=== PATIENT | female | born 1930 | race Caucasian/White ===

== ENCOUNTER → 2016-03-20 | Outpatient (CLI) | payer MEDICARE, OTHER ==
--- OUTSIDE RECORDS SUMMARY | 2016-03-20 09:17 | XMS REPORT | Continuity of Care Document ---
Author Author [facility] Organization [facility] Address Unknown Phone Unavailable Support Name Relationship Address Phone QUYEN AYERS MD Caregiver [facility] [address] [place] [address] MARIYA BOLDEN MD Caregiver [address] [facility] [address] RADHA GARAY Next Of Kin [address] [place] [address] Insurance Providers Payer Name Policy Number Subscriber Name Relationship Wps Medicare [id number] Leelee Cole 19 Self / Same As Patient Enter Insurance Name [id number] Leelee Cole 18 Self / Same As Patient Advance Directives Directive Response Recorded Date/Time Advance Directives No 10/01/13 11:18am Health Care Power of Tension Worker Y LAKEISHA REARDON DTR 10/01/13 11:18am Organ Donor No 10/01/13 11:18am Resuscitation Status Full Code 10/01/13 11:18am Problems No known problems or medical conditions. Medications No known medications. Social History No social history. Hospital Discharge Instructions No hospital discharge instructions. Plan of Care No plan of care. Functional Status No functional status results. Allergies, Adverse Reactions, Alerts Allergen Type Severity Reaction Status Last Updated No Known Drug Allergies Active 10/01/13 Immunizations No immunization records. Vital Signs Acute Vital Signs Vital Response Date/Time Temperature (Fahrenheit) 97.1 degrees F (97.6 - 99.5) Temperature (Calculated Celsius) 36.32588 degrees C (36.4 - 37.5) Temperature Source Tympanic Pulse Rate (adult) 76 bpm (60 - 90) Respiratory Rate 18 bpm (12 - 24) O2 Sat by Pulse Oximetry 97 % (88 - 100) Blood Pressure 145/73 mm Hg Pain Pain Intensity 0 Pain Pain Intensity 0 Height (Feet) 5 feet Height (Inches) 4.50 inches Height (Calculated Centimeters) 163.942509 cm Weight (Pounds) 184 pounds Weight (Calculated Grams) 79069.997 gm Weight (Calculated Kilograms) 83.153881 kilograms Calculated BMI 31.09 Results No known relevant diagnostic tests, laboratory data and/or discharge summary. Procedures No known history of procedures. Encounters Encounter Location Date/Time Registered Clinic [facility] 10/01/13 10:26am Registered Clinic [facility] 09/29/13 1:31pm
--- NOTE | 2016-03-20 12:21 | Diagnostic Imaging Report ---
PROCEDURE: MRI lumbar spine. TECHNIQUE: Multiplanar, multisequence MRI of the lumbar spine was performed without contrast. INDICATION: Back pain. FINDINGS: There is a grade 1 retrolisthesis of L2 over L3 and grade 1 spondylolisthesis of L4 over L5. The vertebral body heights are preserved. There is disc desiccation at all levels. There is mild disc height loss at L2/L3 and at L4/L5 levels. The bone marrow signal demonstrates mild marrow edema along the endplate margins around L2/L3 level, especially at the upper endplate of L3 and to lesser extent similar degenerative-related marrow edema at upper endplate of L2 and L4 levels. There is no suspicious mass in the marrow identified. The cauda equina and conus medullaris appear grossly unremarkable. T11/T12: There is mild disc bulge without significant spinal canal stenosis. There is mild foraminal stenosis on the right side. The left foramen is patent. T12/L1: There is a minimal disc bulge. No spinal canal or foraminal stenosis, however. L1/L2: There is a mild disc bulge and mild facet hypertrophy. No central canal or lateral recess stenosis. No foraminal narrowing. L2/L3: There is a mild diffuse disc bulge and moderate facet hypertrophy bilaterally. No central canal stenosis. There is bilateral mild narrowing of the lateral recess. The foramina demonstrate mild narrowing bilaterally. L3/L4: There is a minimal disc bulge. There is moderate facet hypertrophy and minimal facet effusion on the right side. No central canal or lateral recess stenosis. The foramina are patent. L4/L5: There is a grade 1 spondylolisthesis at this level. There is a diffuse mild disc bulge. The bilateral moderate to severe facet arthropathy is seen. There is mild central canal stenosis reducing the AP dimension of the canal to 9 mm and there is bilateral lateral recess stenosis, mild on the left side and mild to moderate on the right side. There is foraminal stenosis of moderate degree on the right and mild to moderate degree on the left. L5/S1: There is a minimal disc bulge. There is moderate facet arthropathy bilaterally. No central canal or lateral recess stenosis is seen. There is no significant foraminal stenosis. IMPRESSION: There is grade 1 retrolisthesis of L2 over L3 and grade 1 spondylolisthesis of L4 over L5 appears to be secondary to degenerative changes. There are multilevel disc herniations and facet arthropathy, more prominent in the lower lumbar spine. Dictated by: Dictated on workstation # [id number]
== END ==
LOC: RAD 09:14
PROVIDERS: ATTEND Orthopaedic Surgery
DX: M47.896 Other spondylosis, lumbar region (principal)
CPT/HCPCS: 72148

== ENCOUNTER → 2016-08-02 | Outpatient (CLI) | payer MEDICARE, OTHER ==
--- NOTE | 2016-08-02 16:05 | Diagnostic Imaging Report ---
PROCEDURE: CT abdomen and pelvis without contrast. TECHNIQUE: Multiple contiguous axial images were obtained through the abdomen and pelvis without the use of intravenous contrast. INDICATION: Constipation with abdominal pain. COMPARISON: None available. FINDINGS: Evaluation of the abdominal viscera is mildly limited without contrast. Lower chest: There are a few foci of atelectasis within the lung bases. No airspace consolidation. No pericardial or pleural effusion. Peritoneum: No free intraperitoneal air or fluid. Liver and biliary system: Unenhanced liver is normal. The gallbladder is normal. No biliary duct dilation. Spleen and Pancreas: Spleen is normal. Unenhanced pancreas is grossly normal. Adrenals: Normal. tract: No renal or ureteral calculi. No obstructive uropathy. Urinary bladder is partially obscured by streak artifact from left hip arthroplasty. The uterus is surgically absent. GI tract: Stomach is decompressed. No bowel obstruction. Status post right hemicolectomy. There is an enterocolonic anastomosis in the right upper quadrant without evidence of stricture. Descending and sigmoid colon diverticulosis without evidence of diverticulitis. Vasculature and Lymph nodes: Normal caliber aorta with moderate atherosclerotic plaquing. No abdominal or pelvic lymphadenopathy. Musculoskeletal: No concerning focal osseous lesion. Left total hip arthroplasty with components in good position. Degenerative levocurvature of the lumbar spine. IMPRESSION: 1. No acute intra-abdominal process. 2. Status post right hemicolectomy. Descending and sigmoid colon diverticulosis without diverticulitis. Dictated by: Dictated on workstation # [id number]
== END ==
LOC: RAD 15:31
PROVIDERS: ATTEND Nurse Practitioner Family
DX: K57.30 Diverticulosis of large intestine without perforation or abscess without bleeding (principal); Z90.49 Acquired absence of other specified parts of digestive tract; R10.30 Lower abdominal pain, unspecified; K59.00 Constipation, unspecified
CPT/HCPCS: 74176

== ENCOUNTER 2017-07-17 16:48 | Emergency (ER) | payer MEDICARE, OTHER ==
[~2017-07-17] VITALS: Ht 165.1 cm; Wt 89.8 kg
--- NOTE | 2017-07-17 17:33 | Diagnostic Imaging Report ---
INDICATION: Fall with left-sided abdominal pain, history of colon cancer. KUB obtained at 5:49 p.m. FINDINGS: The abdominal bowel gas pattern is unremarkable. There is no overt obstruction or ileus. There is no overt bony abnormality. There is a left hip prosthesis in good alignment. There are surgical sutures over the right side of the abdomen. IMPRESSION: Unremarkable abdominal film. Dictated by: Dictated on workstation # [id number]
--- NOTE | 2017-07-17 17:47 | ED General ---
General Chief Complaint: General Problems/Pain Stated Complaint: PAIN Nursing Triage Note: PATIENT IS HERE FOR SEVERAL GENERAL COMPLAINTS: BACK PAIN, LEG PAIN (SOMETIMES RIGHT, SOME TIMES LEFT), ABDOMINAL PAIN THAT SHE HAS HAD FOR 5 YEARS ON THE LEFT SIDE, FREQUENT FALLS, DIFFICULTIES WALKING, ITCHING. SHE STATES SHE HAD BLOOD WORK AND UA RECENTLY THAT WAS ALL NORMAL. Nursing Sepsis Screen: No Definite Risk Source of Information: Patient Exam Limitations: No Limitations History of Present Illness Date Seen by Provider: Jul 17, 2017 Time Seen by Provider: 17:14 Initial Comments This 86-year-old woman is brought to the emergency room by her son and daughter with complaints of back pain, left-sided abdominal pain, and generalized discomfort. She reports progressive problems with weakness and walking. She reports frequent falls. In particular, she reports having a fall about 2 months ago in which she injured her back. She has not had imaging related to that fall. She denies any head injury. She has history of spinal stenosis and has been seen by Dr. Kwon in the past. Family reports she has not a surgical candidate. Patient states her primary care provider is Brenda Dixon but she frequents urgent care clinic's. Family reports patient has had these problems for several years. They report none of her complaints today are acute. She was apparently evaluated at the [facility] urgent care a couple days ago. A urine specimen was collected and was reportedly unremarkable. They report she also recently had blood work performed by Dr. Dixon which was unremarkable per their report. Patient has problems with alternating between constipation and diarrhea. She uses MiraLAX and Dulcolax when constipated of the takes Imodium when she has runny stools. She was recently started on Linzess. Patient is a little bit of a confused historian. Family members are obviously frustrated with her. Patient lives alone and is checked on daily by her son. It seems that patient's primary complaint is that she has generalized pain, specifically back pain, that is limiting her mobility. She takes Tylenol and ibuprofen at home. Her children reported that she has been to multiple doctors in the recent past including Dr. Vega, Dr. Dixon, and Dr. William. Most recently she saw Dr. Dixon but does not intend to go back. They state her fall earlier today was nontraumatic with no blunt injury. She slid down onto a chest but did not truly fall. Allergies and Home Medications Allergies Coded Allergies: No Known Drug Allergies (Unverified , 10/01/13) Home Medications Gabapentin 100 Mg Capsule, 100 MG PO HS Prescribed by: MARKUS ARGUETA on 07/17/171832 Prednisone 10 Mg Tab, 10 MG PO DAILY Prescribed by: MARKUS ARGUETA on 07/17/17 1849 Patient Home Medication List Home Medication List Reviewed: Yes Review of Systems Constitutional: no symptoms reported EENTM: no symptoms reported Respiratory: no symptoms reported Cardiovascular: no symptoms reported Gastrointestinal: see HPI Genitourinary: no symptoms reported : No Musculoskeletal: see HPI Skin: no symptoms reported Psychiatric/Neurological: See HPI Hematologic/Lymphatic: No Symptoms Reported Immunological/Allergic: no symptoms reported Past Bvspbsq-Izpbxc-Wyczxd Hx Past Med/Social Hx: Reviewed and Corrections made Patient Social History Alcohol Use: Denies Use Recreational Drug Use: No Smoking Status: Never a Smoker 2nd Hand Smoke Exposure: No Recent Foreign Travel: No Contact w/Someone Who Travel: No Recent Infectious Disease Expo: No Recent Hopitalizations: No Physical Abuse: No Sexual Abuse: No Seasonal Allergies Seasonal Allergies: No Past Medical History Surgeries: Yes (COLON CA SURGERY) Respiratory: No Cardiac: No Neurological: No : No Reproductive Disorders: No Genitourinary: No Gastrointestinal: Yes Irritable Bowel Musculoskeletal: Yes Chronic Back Pain Endocrine: No HEENT: No Cancer: Yes Colon Psychosocial: No Nursing Suicide Risk Score: 0 Integumentary: No Physical Exam Vital Signs Vital Signs - First Documented 07/17/17 17:00 Temp 98.3 Pulse 85 Resp 18 B/P (MAP) 138/73 (94) Pulse Ox 96 Capillary Refill : Less Than 3 Seconds General Appearance: WD/WN, Anxious HEENT: PERRL/EOMI, Normal ENT Inspection, Pharynx Normal Neck: Normal Inspection, Supple Respiratory: Lungs Clear, Normal Breath Sounds, No Accessory Muscle Use Cardiovascular: Regular Rate, Rhythm, No Edema, No Murmur Gastrointestinal: Normal Bowel Sounds, Soft, Tenderness (left lower quadrant, stated as chronic) Extremity: Normal Inspection, No Pedal Edema, Other (mild tenderness about the knees. No significant pain with rotation of the hips or palpation of the hips) Neurologic/Psychiatric: Alert, Other (generalized weakness with no focal deficits. Disoriented to month. Anxious.) Skin: Normal Color, Warm/Dry Progress/Results/Core Measures Suspected Sepsis Recent Fever Within 48 Hours: No Infection Criteria Present: None New/Unexplained Altered Menta: No Sepsis Screen: No Definite Risk SIRS Temperature:98.3 Pulse: 85 Respiratory Rate: 18 Blood Pressure 138 /73 Mean: 94 Results/Orders My Orders Orders - MARKUS ESTEVEZ MD Thoracolumbar Spine Min 2 View (07/17/17 17:14) Abdomen/Kub 1view (07/17/17 17:14) Thoracic Spine, 2 Views Only (07/17/17 18:03) Lumbar Spine - 2-3 Views (07/17/17 18:03) Vital Signs/I&O Capillary Refill : Less Than 3 Seconds Blood Pressure Mean: 94 Progress Note : Progress Note Patient x-rays showed no evidence of constipation or spinal compression fracture. I discussed the patient's situation and complaints at length with the patient and family. I strongly advised her to seek care with a primary care provider and to stay with a single provider. In the meantime, we will prescribe a trial of gabapentin at bedtime and a few days of prednisone therapy. Diagnostic Imaging Diagonstic Imaging: Xray Plain Films/CT/US/NM/MRI: abdomen, pelvis Comments KUB viewed by me and report reviewed. See report below: NAME: LOPEZ COLE [facility] REC#: [id number] PT STATUS: REG ER : 1930 PHYSICIAN: MARKUS ESTEVEZ MD ADMIT DATE: 07/17/17/ER Draft Date of Exam:07/17/17 ABDOMEN/KUB 1VIEW INDICATION: Fall with left-sided abdominal pain, history of colon cancer. KUB obtained at 5:49 p.m. FINDINGS: The abdominal bowel gas pattern is unremarkable. There is no overt obstruction or ileus. There is no overt bony abnormality. There is a left hip prosthesis in good alignment. There are surgical sutures over the right side of the abdomen. IMPRESSION: Unremarkable abdominal film. Dictated on workstation # [id number] Dict: 07/17/17 173 Trans: 07/17/17 173 RICHY [id number] Interpreted by: ELENA STEVE MD Diagonstic Imaging: Xray Plain Films/CT/US/NM/MRI: other (Thoracic spine) Comments X-rays of thoracic spine viewed by me and report reviewed. See report below: NAME: LOPEZ COLE [facility] REC#: [id number] PT STATUS: REG ER : 1930 PHYSICIAN: MARKUS ESTEVEZ MD ADMIT DATE: 07/17/17/ER Signed Date of Exam: 07/17/17 THORACIC SPINE, 2 VIEWS ONLY INDICATION: Fall with back pain. EXAMINATION: AP and lateral views of the thoracic spine were obtained. FINDINGS: There is diffuse mild osteophyte formation at essentially all levels throughout the thoracic spine with mild disc space narrowing. There is no acute fracture or compression deformity. There is mild dextroscoliotic change. IMPRESSION: Degenerative findings and mild dextroscoliotic change of the thoracic spine. No definite fracture or compression deformity. Dictated by: Dictated on workstation # [id number] Dict: 07/17/171831 Trans: 07/17/171841 Interpreted by: ELENA STEVE MD Electronically signed by: ELENA STEVE MD 07/17/171841 Diagonstic Imaging: Xray Plain Films/CT/US/NM/MRI: other (Lumbar spine) Comments Lumbar spine x-ray viewed by me and report reviewed. See report below: NAME: LOPEZ COLE [facility] REC#: [id number] PT STATUS: REG ER : 1930 PHYSICIAN: MARKUS ESTEVEZ MD ADMIT DATE: 07/17/17/ER Signed Date of Exam: 07/17/17 LUMBAR SPINE - 2-3 VIEWS INDICATION: Fall with back pain. EXAMINATION: AP and lateral views of he lumbar spine were obtained. COMPARISON: 09/29/2013. FINDINGS: There is about 3 mm of anterolisthesis of L4 on L5 and about 2-3 mm of retrolisthesis of L2 on L3. This alignment is unchanged compared to the previous study of 09/29/2013. There is no compression deformity or acute fracture. There is facet degenerative change at L3-4, L4-5 and L5-S1. IMPRESSION: Degenerative findings in the lumbar spine, as described above, with no acute compression deformity or acute fracture. Anterolisthesis of L4 on L5 and retrolisthesis of L2 on L3 appears similar to 09/29/2013. Dictated by: Dictated on workstation # [id number] Dict: 07/17/17 1831 Trans: 07/17/171841 Interpreted by: ELENA STEVE MD Electronically signed by: ELENA STEVE MD 07/17/171841 Departure Impression Primary Impression: Chronic pain Qualified Codes: G89.29 - Other chronic pain Additional Impressions: Arthritis Generalized weakness Disposition: HOME, SELF-CARE Condition: Stable Departure-Patient Inst. Decision time for Depature: 18:31 Referrals: BRENDA DIXON MD (PCP/Family) Primary Care Physician Patient Instructions: CHRONIC PAIN Add. Discharge Instructions: You may take Tylenol (acetaminophen) up to 1000 mg every 6 hours as needed for pain. Add ibuprofen up to 400 mg every 6 hours as needed for pain not controlled by Tylenol. Take with food or milk to avoid stomach irritation. Add gabapentin (Neurontin) as prescribed at bedtime to help you sleep and control pain at night. If you're not making progress on your pain management with [id number]-neiujdd medications and gabapentin, consider taking prednisone as prescribed. Take prednisone early in the day with food. Reestablish with a primary care provider as soon as possible to help you manage your chronic issues. Return to care more promptly if you have worsening symptoms. Ambulate with a cane or walker for your safety. When you reestablish with a primary care provider, discussed the potential for physical therapy for strength training and coordination. All discharge instructions reviewed with patient and/or family. Voiced understanding. Scripts Prednisone (Prednisone) 10 Mg Tab 10 MG PO DAILY, #5 TAB Prov: MARKUS ESTEVEZ MD 07/17/17 Gabapentin (Gabapentin) 100 Mg Capsule 100 MG PO HS, #10 CAP Prov: MARKUS ESTEVEZ MD 07/17/17 Copy Copies To 1: BRENDA DIXON MD, JOSHUA T MD Jul 17, 2017 17:47
[2017-07-17] MEDS ORDERED: GABA-486 PO (18:33)
--- NOTE | 2017-07-17 18:35 | Diagnostic Imaging Report ---
INDICATION: Fall with back pain. EXAMINATION: AP and lateral views of he lumbar spine were obtained. COMPARISON: 09/29/2013. FINDINGS: There is about 3 mm of anterolisthesis of L4 on L5 and about 2-3 mm of retrolisthesis of L2 on L3. This alignment is unchanged compared to the previous study of 09/29/2013. There is no compression deformity or acute fracture. There is facet degenerative change at L3-4, L4-5 and L5-S1. IMPRESSION: Degenerative findings in the lumbar spine, as described above, with no acute compression deformity or acute fracture. Anterolisthesis of L4 on L5 and retrolisthesis of L2 on L3 appears similar to 09/29/2013. Dictated by: Dictated on workstation # [id number]
--- NOTE | 2017-07-17 18:36 | Diagnostic Imaging Report ---
INDICATION: Fall with back pain. EXAMINATION: AP and lateral views of the thoracic spine were obtained. FINDINGS: There is diffuse mild osteophyte formation at essentially all levels throughout the thoracic spine with mild disc space narrowing. There is no acute fracture or compression deformity. There is mild dextroscoliotic change. IMPRESSION: Degenerative findings and mild dextroscoliotic change of the thoracic spine. No definite fracture or compression deformity. Dictated by: Dictated on workstation # [id number]
[2017-07-17] MEDS ORDERED: PRD10T PO (18:49)
[2017-07-17 18:53] VITALS: BP 138/73
== END 2017-07-17 18:58 | disposition home or self-care (01) ==
LOC: EDUNIT# 16:48 → ER 16:49
DX: M54.9 Dorsalgia, unspecified (principal); G89.29 Other chronic pain; M19.90 Unspecified osteoarthritis, unspecified site; R53.1 Weakness; Z79.52 Long term (current) use of systemic steroids; Z85.038 Personal history of other malignant neoplasm of large intestine; Z87.19 Personal history of other diseases of the digestive system
CPT/HCPCS: 72070; 72100; 74018

== ENCOUNTER 2017-09-10 10:34 | Emergency (ER) | payer MEDICARE, OTHER ==
[~2017-09-10] VITALS: Ht 165.1 cm; Wt 81.6 kg
[~2017-09-10 10:34] MED LIST: GABA-486 PO; PRD10T PO
[2017-09-10] MEDS ORDERED: ALPR0.5T PO (11:13)
[2017-09-10 11:40] LABS: BASOPHILS % (AUTO) 1 % (0-10); EOSINOPHILS # (AUTO) 0.1 10^3/uL (0.0-0.3); EOSINOPHILS % (AUTO) 1 % (0-10); HEMATOCRIT 38 % (35-52); HEMOGLOBIN 13.3 G/DL (11.5-16.0); LYMPHOCYTES # (AUTO) 1.8 X 10^3 (1.0-4.0); LYMPHOCYTES % (AUTO) 28 % (12-44); MEAN CORPUSCULAR HEMOGLOBIN 31 PG (25-34); MEAN CORPUSCULAR HGB CONC 35 G/DL (32-36); MEAN CORPUSCULAR VOLUME 89 FL (80-99); MEAN PLATELET VOLUME 8.7 FL (7.4-10.4); MONOCYTES # (AUTO) 0.7 X 10^3 (0.0-1.0); MONOCYTES % (AUTO) 11 % (0-12); NEUTROPHILS # (AUTO) 3.8 X 10^3 (1.8-7.8); NEUTROPHILS % (AUTO) 59 % (42-75); PLATELET COUNT 273 10^3/uL (130-400); RED BLOOD COUNT 4.29 10^6/uL (4.35-5.85); RED CELL DISTRIBUTION WIDTH 14.1 % (10.0-14.5); WHITE BLOOD COUNT 6.4 10^3/uL (4.3-11.0)
[2017-09-10] MEDS ORDERED: FUROSEMIDE 40 MG/4 ML INJ (LASIX) IVP ONE (11:45)
[2017-09-10 11:55] LABS: ALANINE AMINOTRANSFERASE 15 U/L (0-55); ALBUMIN 3.8 GM/DL (3.2-4.5); ALKALINE PHOSPHATASE 58 U/L (40-136); BILIRUBIN,TOTAL 0.6 MG/DL (0.1-1.0); BUN/CREATININE RATIO 17; CALCIUM 9.8 MG/DL (8.5-10.1); CARBON DIOXIDE 30 MMOL/L (21-32); CHLORIDE 100 MMOL/L (98-107); CREATININE SERUM 0.81 MG/DL (0.60-1.30); GFR ESTIMATED > 60; GLUCOSE 107 MG/DL (70-105); SODIUM 138 MMOL/L (135-145); TOTAL PROTEIN 6.9 GM/DL (6.4-8.2)
[2017-09-10 11:57] LABS: POTASSIUM 4.8 MMOL/L (3.6-5.0)
[2017-09-10] MEDS ORDERED: HYDROcodone/APAP 5 MG/325 MG (LORTAB) TAB PO STA (12:04)
[2017-09-10 12:09] LABS: BILIRUBIN,URINE NEGATIVE (NEGATIVE); CLARITY,URINE CLEAR; COLOR,URINE YELLOW; GLUCOSE, URINE (UA) NEGATIVE (NEGATIVE); KETONES,URINE NEGATIVE (NEGATIVE); LEUKOCYTE ESTERASE ,URINE NEGATIVE (NEGATIVE); NITRITE,URINE NEGATIVE (NEGATIVE); PH,URINE 7 (5-9); PROTEIN,URINE NEGATIVE (NEGATIVE); UROBILINOGEN,URINE NORMAL (NORMAL)
[2017-09-10 12:22] LABS: BACTERIA,URINE NEGATIVE /HPF
--- NOTE | 2017-09-10 13:23 | Diagnostic Imaging Report ---
INDICATION: Bilateral leg swelling. COMPARISON: None TECHNIQUE: Duplex, drew-scale and color-flow imaging of the bilateral lower extremity venous system was performed. FINDINGS: The common femoral vein, superficial femoral vein, profunda femoris, and popliteal veins are normal. These vessels show normal compressibility, color flow, and Doppler augmentation. The deep calf veins, although not very well seen, demonstrate no distinct intraluminal thrombus. IMPRESSION: Negative venous Doppler of the bilateral lower extremities. Dictated by: Dictated on workstation # [id number]
--- NOTE | 2017-09-10 13:34 | ED Abdominal Pain ---
General Chief Complaint: Abdominal/GI Problems Stated Complaint: LEGS SWELLING, ABD PAIN,ITCHING Nursing Triage Note: PT AMBULATES TO ROOM 10 W WALKER. PT CO OF DIFFUSED ABD PAIN RATES 10/10 FOR A COUPLE DAYS STATES HAS BEEN TAKING 1/4 TO 1/2 HYDROCODONE FOR PAIN FOR A FEW DAYS, STATES HAS SWELLING IN LOWER EXT FOR 1 WEEK. DENIES N/V Sepsis Screen: No Definite Risk History of Present Illness Date Seen by Provider: Sep 10, 2017 Time Seen by Provider: 11:30 Initial Comments 87-year-old female presents for suprapubic pain, confusion, lower extremity swelling and pain. She is not established with a primary care provider. Throughout the exam and reevaluation she continually repeats questions. She lives independently with a niece and nephew who check on her occasionally. She has a history of previous left total hip replacement and spinal stenosis. Timing/Duration: Intermittent Severity/Quality: Mild Location: Suprapubic Associated Symptoms: Back Pain Allergies and Home Medications Allergies Coded Allergies: No Known Drug Allergies (Unverified , 10/01/13) Home Medications Furosemide 20 Mg Tablet, 20 MG PO DAILY Prescribed by: NALINI BECERRA on 09/10/17 1424 Hydrocodone Bit/Acetaminophen 1 Tab Tab, 1 EACH PO Q6H PRN for PAIN Prescribed by: NALINI BECERRA on 09/10/17 1425 Patient Home Medication List Home Medication List Reviewed: Yes Review of Systems Constitutional: no symptoms reported, see HPI Gastrointestinal: See HPI, Abdominal Pain; Denies Diarrhea, Denies Nausea, Denies Poor Appetite, Denies Vomiting All Other Systems Reviewed Negative Unless Noted: Yes Past Abrwoec-Xdpsii-Owwvza Hx Past Med/Social Hx: Reviewed Nursing Past Med/Soc Hx Patient Social History Alcohol Use: Denies Use Recreational Drug Use: No Smoking Status: Never a Smoker 2nd Hand Smoke Exposure: No Recent Foreign Travel: No Contact w/Someone Who Travel: No Recent Infectious Disease Expo: No Recent Hopitalizations: No Physical Abuse: No Sexual Abuse: No Seasonal Allergies Seasonal Allergies: No Past Medical History Surgeries: Yes (COLON CA SURGERY) Respiratory: No Cardiac: No Neurological: No Reproductive Disorders: No Genitourinary: No Gastrointestinal: Yes Irritable Bowel Musculoskeletal: Yes Chronic Back Pain Endocrine: No HEENT: No Cancer: Yes Colon Psychosocial: No Nursing Suicide Risk Score: 0 Integumentary: No Physical Exam Vital Signs Vital Signs - First Documented 09/10/17 10:45 Temp 97.7 Pulse 80 Resp 18 B/P (MAP) 155/87 (109) Pulse Ox 94 Capillary Refill : Less Than 3 Seconds Height/Weight/BMI Height: 5'5.00" Weight: 180lbs. 0oz. 81.515497av; BMI Method:Stated General Appearance: WD/WN, no apparent distress HEENT: PERRL/EOMI, normal ENT inspection, TMs normal, pharynx normal Neck: non-tender, full range of motion, supple, normal inspection Respiratory: chest non-tender, lungs clear, normal breath sounds Cardiovascular: normal peripheral pulses, regular rate, rhythm Gastrointestinal: normal bowel sounds, soft; No guarding, No rebound; tenderness (suprapubic and left lower quadrant) Extremities: normal range of motion, normal capillary refill, calf tenderness ( positive Homans), pedal edema (2+ bilaterally), other (pedal pulses 2+ and symmetric) Back: normal inspection, no CVA tenderness Neurologic/Psychiatric: no motor/sensory deficits, alert, normal mood/affect Skin: normal color, warm/dry Progress/Results/Core Measures Results/Orders Lab Results Laboratory Tests Test 09/10/17 10:55 09/10/17 12:00 Range/Units White Blood Count 6.4 4.3-11.0 10^3/uL Red Blood Count 4.29 L 4.35-5.85 10^6/uL Hemoglobin 13.3 11.5-16.0 G/DL Hematocrit 38 35-52 % Mean Corpuscular Volume 89 80-99 FL Mean Corpuscular Hemoglobin 31 25-34 PG Mean Corpuscular Hemoglobin Concent 35 32-36 G/DL Red Cell Distribution Width 14.1 10.0-14.5 % Platelet Count 273 130-400 10^3/uL Mean Platelet Volume 8.7 7.4-10.4 FL Neutrophils (%) (Auto) 59 42-75 % Lymphocytes (%) (Auto) 28 12-44 % Monocytes (%) (Auto) 11 0-12 % Eosinophils (%) (Auto) 1 0-10 % Basophils (%) (Auto) 1 0-10 % Neutrophils # (Auto) 3.8 1.8-7.8 X 10^3 Lymphocytes # (Auto) 1.8 1.0-4.0 X 10^3 Monocytes # (Auto) 0.7 0.0-1.0 X 10^3 Eosinophils # (Auto) 0.1 0.0-0.3 10^3/uL Basophils # (Auto) 0.0 0.0-0.1 10^3/uL D-Dimer 0.85 H 0.00-0.49 UG/ML Sodium Level 138 135-145 MMOL/L Potassium Level 4.8 3.6-5.0 MMOL/L Chloride Level 100 98-107 MMOL/L Carbon Dioxide Level 30 21-32 MMOL/L Anion Gap 8 5-14 MMOL/L Blood Urea Nitrogen 14 7-18 MG/DL Creatinine 0.81 0.60-1.30 MG/DL Estimat Glomerular Filtration Rate > 60 BUN/Creatinine Ratio 17 Glucose Level 107 H 70-105 MG/DL Calcium Level 9.8 8.5-10.1 MG/DL Total Bilirubin 0.6 0.1-1.0 MG/DL Aspartate Amino Transf (AST/SGOT) 20 5-34 U/L Alanine Aminotransferase (ALT/SGPT) 15 0-55 U/L Alkaline Phosphatase 58 40-136 U/L Total Protein 6.9 6.4-8.2 GM/DL Albumin 3.8 3.2-4.5 GM/DL Urine Color YELLOW Urine Clarity CLEAR Urine pH 7 5-9 Urine Specific [place] 1.010 L 1.016-1.022 Urine Protein NEGATIVE NEGATIVE Urine Glucose (UA) NEGATIVE NEGATIVE Urine Ketones NEGATIVE NEGATIVE Urine Nitrite NEGATIVE NEGATIVE Urine Bilirubin NEGATIVE NEGATIVE Urine Urobilinogen NORMAL NORMAL MG/DL Urine Leukocyte Esterase NEGATIVE NEGATIVE Urine RBC (Auto) NEGATIVE NEGATIVE Urine RBC NONE /HPF Urine WBC NONE /HPF Urine Squamous Epithelial Cells NONE /HPF Urine Crystals NONE /LPF Urine Bacteria NEGATIVE /HPF Urine Casts NONE /LPF Urine Mucus NEGATIVE /LPF Urine Culture Indicated NO My Orders Orders - NALINI BECERRA Cbc With Automated Diff (09/10/17 11:32) Comprehensive Metabolic Panel (09/10/17 11:32) Ua Culture If Indicated (09/10/17 11:32) Furosemide Injection (Lasix Injection) (09/10/17 11:45) Fibrin Degradation Products (09/10/17 11:34) Ekg Tracing (09/10/17 11:37) Us Venous Lower Ext [place] (09/10/17 11:56) Hydrocodone/Apap 5/325 Tablet (Lortab 5 (09/10/17 12:04) Pelvis With Left Hip 2-3 Views (09/10/17 13:33) Phenazopyridine Tablet (Pyridium Tablet) (09/10/17 13:45) Medications Given in ED Current Medications Medications Dose Ordered Sig/Randolph Route Start Time Stop Time Status Last Admin Dose Admin Furosemide 20 mg ONCE ONCE IVP 09/10/17 11:45 09/10/17 11:46 DC 09/10/17 11:45 20 MG Phenazopyridine HCl 100 mg ONCE ONCE PO 09/10/17 13:45 09/10/17 13:46 DC 09/10/17 14:07 100 MG Vital Signs/I&O 09/10/17 09/10/17 10:45 14:40 Temp 97.7 Pulse 80 77 Resp 18 18 B/P (MAP) 155/87 (109) 157/84 Pulse Ox 94 99 Blood Pressure Mean: 109 Progress Progress Note : Time: 11:30 Progress Note Initial evaluation completed, recommended labs and reevaluation. 1215 with elevated d-dimer we will obtain bilateral lower extremity ultrasounds. Hydrocodone/APAP 5/325 mg for pain. 1300 ultrasound negative for acute DVT. Patient does report some improvement in her left lower quadrant pain however she is having more left hip pain. We'll obtain an x-ray of the pelvis and left hip as the patient does report occasional falls. 1345 x-ray of the pelvis and left hip show no acute findings. 1400 discharge instructions and return precautions reviewed with the patient and her nephew. Encouraged that she establish with a primary care provider. Diagnostic Imaging Diagonstic Imaging: Ultrasound Plain Films/CT/US/NM/MRI: leg (bilateral) Comments NAME: LOPEZ COLE [facility] REC#: [id number] PT STATUS: REG ER : 1930 PHYSICIAN: NALINI BECERRA ADMIT DATE: 09/10/17/ER Draft Date of Exam:09/10/17 US VENOUS LOWER EXT SCOTT INDICATION: Bilateral leg swelling. COMPARISON: None TECHNIQUE: Duplex, drew-scale and color-flow imaging of the bilateral lower extremity venous system was performed. FINDINGS: The common femoral vein, superficial femoral vein, profunda femoris, and popliteal veins are normal. These vessels show normal compressibility, color flow, and Doppler augmentation. The deep calf veins, although not very well seen, demonstrate no distinct intraluminal thrombus. IMPRESSION: Negative venous Doppler of the bilateral lower extremities. Dictated on workstation # [id number] Dict: 09/10/17 1321 Trans: 09/10/17 1322 SA [id number] Interpreted by: MARTÍN SHAH MD Electronically signed by: Diagonstic Imaging: Xray Plain Films/CT/US/NM/MRI: pelvis, hip Comments NAME: LOPEZ COLE [facility] REC#: [id number] PT STATUS: REG ER : 1930 PHYSICIAN: NALINI BECERRA ADMIT DATE: 09/10/17/ER Draft Date of Exam:09/10/17 PELVIS WITH LEFT HIP 2-3 VIEWS PATIENT HISTORY: Left hip pain. EXAMINATION: Frontal view of the pelvis. Frontal and lateral views of the left hip. COMPARISON: None. FINDINGS: No acute fracture or dislocation is seen in the pelvis or left hip. There is a left total hip arthroplasty. There is mild lucency near the superior aspect of the acetabular component; however, no definite loosening or fracture is seen. The alignment appears normal. There are mild degenerative changes in the contralateral right hip. Degenerative changes are seen in the lower lumbar spine and pubic symphysis. IMPRESSION: 1. Left total hip arthroplasty without hardware complication seen. 2. Degenerative changes without acute osseous abnormality seen. Dictated on workstation # [id number] Dict: 09/10/17 1404 Trans: 09/10/17 1416 [id number] Interpreted by: ALESSANDRO DE JESUS MD Electronically signed by: Reviewed: Reviewed by Me Departure Impression Primary Impression: Pain, abdominal, LLQ Additional Impression: Dementia Qualified Codes: F03.90 - Unspecified dementia without behavioral disturbance Disposition: 01 HOME, SELF-CARE Condition: Improved Departure-Patient Inst. Decision time for Depature: 14:00 Referrals: NO,LOCAL PHYSICIAN (PCP/Family) Primary Care Physician Patient Instructions: Acute Abdomen (Belly Pain), Adult (DC) Add. Discharge Instructions: Take Lasix one pill daily. Eat one banana daily. Establish with Primary Care Provider: Stewart Mancia or Gary. Increase your pain pills to one half or 1 tablet every 6-8 hours as needed for pain. You need to have a colonoscopy, have your primary care provider arrange this. Return to Emergency Department for new, acute problems. All discharge instructions reviewed with patient and/or family. Voiced understanding. Scripts Hydrocodone Bit/Acetaminophen (Hydrocodone/Acetaminophen 5/325mg Tablet) 1 Tab Tab 1 EACH PO Q6H PRN for PAIN, #20 TAB 0 Refills Prov: NALINI BECERRA 09/10/17 Furosemide (Lasix) 20 Mg Tablet 20 MG PO DAILY, #10 TAB 0 Refills Prov: NALINI BECERRA 09/10/17 NALINI BECERRA Sep 10, 2017 13:34
[2017-09-10] MEDS ORDERED: PHENAZOPYRIDINE 100 MG (PYRIDIUM) TABLET PO ONE (13:45)
--- NOTE | 2017-09-10 14:16 | Diagnostic Imaging Report ---
PATIENT HISTORY: Left hip pain. EXAMINATION: Frontal view of the pelvis. Frontal and lateral views of the left hip. COMPARISON: None. FINDINGS: No acute fracture or dislocation is seen in the pelvis or left hip. There is a left total hip arthroplasty. There is mild lucency near the superior aspect of the acetabular component; however, no definite loosening or fracture is seen. The alignment appears normal. There are mild degenerative changes in the contralateral right hip. Degenerative changes are seen in the lower lumbar spine and pubic symphysis. IMPRESSION: 1. Left total hip arthroplasty without hardware complication seen. 2. Degenerative changes without acute osseous abnormality seen. Dictated by: Dictated on workstation # [id number]
[2017-09-10] MEDS ORDERED: FURO-125 PO (14:24)
[2017-09-10] MEDS ORDERED: ACHD5005 PO (14:25)
[2017-09-10 14:40] VITALS: BP 157/84
== END 2017-09-10 14:40 | disposition home or self-care (01) ==
LOC: EDUNIT# 10:34 → ER 10:37
DX: R10.32 Left lower quadrant pain (principal); F03.90 Unspecified dementia, unspecified severity, without behavioral disturbance, psychotic disturbance, mood disturbance, and anxiety; Z85.038 Personal history of other malignant neoplasm of large intestine
CPT/HCPCS: 36415; 80053; 81000; 85025; 85379; 93005; 93970; 96374

== ENCOUNTER 2017-11-11 06:33 | Emergency (ER) | payer MEDICARE, OTHER ==
[~2017-11-11] VITALS: Ht 157.5 cm; Wt 72.6 kg
[~2017-11-11 06:33] MED LIST changes: +ACHD5005 PO; +ALPR0.5T PO; +FURO-125 PO
[2017-11-11] MEDS ORDERED: LACTATED RINGERS 1,000 ML IV ONE (06:44)
[2017-11-11] MEDS ORDERED: HYOSCYAMINE 0.125 MG (LEVSIN) TAB SL ONE (06:45)
[2017-11-11] MEDS ORDERED: ONDANSETRON 4 MG/2 ML (SDV) Z0FRAN IVP ONE (06:45)
[2017-11-11] MEDS ORDERED: LORazepam INJ 2 MG/ML (ATIVAN) VIAL IVP ONE (06:45)
[2017-11-11 07:01] LABS: BASOPHILS % (AUTO) 1 % (0-10); EOSINOPHILS # (AUTO) 0.5 10^3/uL (0.0-0.3); EOSINOPHILS % (AUTO) 6 % (0-10); HEMATOCRIT 41 % (35-52); HEMOGLOBIN 14.3 G/DL (11.5-16.0); LYMPHOCYTES # (AUTO) 1.8 X 10^3 (1.0-4.0); LYMPHOCYTES % (AUTO) 24 % (12-44); MEAN CORPUSCULAR HEMOGLOBIN 30 PG (25-34); MEAN CORPUSCULAR HGB CONC 35 G/DL (32-36); MEAN CORPUSCULAR VOLUME 87 FL (80-99); MEAN PLATELET VOLUME 8.3 FL (7.4-10.4); MONOCYTES # (AUTO) 0.7 X 10^3 (0.0-1.0); MONOCYTES % (AUTO) 10 % (0-12); NEUTROPHILS # (AUTO) 4.4 X 10^3 (1.8-7.8); NEUTROPHILS % (AUTO) 60 % (42-75); PLATELET COUNT 238 10^3/uL (130-400); RED CELL DISTRIBUTION WIDTH 13.3 % (10.0-14.5); WHITE BLOOD COUNT 7.4 10^3/uL (4.3-11.0)
[2017-11-11 07:12] LABS: INR 0.9 (0.8-1.4); PROTHROMBIN TIME PATIENT 12.5 SEC (12.2-14.7)
--- NOTE | 2017-11-11 07:15 | ED Fall/Injury ---
General Chief Complaint: Trauma-Non Activation Stated Complaint: FALL Nursing Triage Note: Pt fell over walker when it became stuck on the bathroom door. Pt denies LOC. Pt was able to stand on her own and continued to walk to her room. Per EMS, the pt was up walking down the gimenez when they arrived. Source: patient (LIMITED HISTORIAN), EMS History of Present Illness Date Seen by Provider: Nov 11, 2017 Time Seen by Provider: 06:35 Initial Comments PT ARRIVES VIA EMS FROM HOME PT FELL COMING OUT OF THE BATHROOM, STATES "MY WALKER GOT AWAY FROM ME" STATES SHE LANDED ON HER LEFT HIP PT WAS ABLE TO GET HERSELF BACK IN BED, AND PT WAS WALKING DOWN THE GIMENE[place] WITH HER WALKER WHEN EMS ARRIVED AT THE HOME PT STATES SHE DID NOT HIT HER HEAD AND NO LOSS OF CONSCIOUSNESS NO NECK PAIN HAS CHRONIC BACK PAIN AND IS NO DIFFERENT THAN NORMAL PT STATES SHE "FALLS ALL THE TIME" LEFT HIP HAS BEEN REPLACED IN THE PAST FOR ARTHRITIS. NO PRIOR HIP FRACTURE PT'S MAIN FIXATION ON ARRIVAL IS ONGOING "IRRITABLE BOWEL"--CANNOT STATE HOW LONG THIS HAS BEEN GOING ON, BUT APPEARS TO BE A CHRONIC PROBLEM AND PT CANNOT STATE WHEN SYMPTOMS GOT WORSE C/O GENERALIZED LOWER ABDOMINAL PAIN AND WANTING PAIN MEDICATION FOR HER STOMACH SOON SHE ARRIVES. C/O CONSTIPATION--STATES SHE NORMALLY USES SUPPOSITORIES FOR BM. USED ONE YESTERDAY WITHOUT ANY SIGNIFICANT RESULTS--STATES SHE HAD A SMALL, MUCOUS-Y BM YESTERDAY MORNING NO PAIN ON URINATION, BUT HAS HAD SOME INCREASE IN FREQUENCY AND WAS UP A COUPLE OF TIMES DURING THE NIGHT TO GO TO THE BATHROOM NO FEVER C/O NAUSEA, NO VOMITING PER OLD RECORDS, PT HAS HISTORY OF COLON CANCER PT HAS CHRONIC ANXIETY AND ONLY MEDICATION SHE TAKES IS XANAX DENIES HAVING BLOOD PRESSURE PROBLEMS --BP 180'S/ 100'S FOR EMS Location Injury Occurred: [facility] PCP: DR. AYERS--HAS APPOINTMENT AT 10:00 AM FOR ONGOING ABDOMINAL ISSUES Allergies and Home Medications Allergies Coded Allergies: No Known Drug Allergies (Unverified , 10/01/13) Home Medications Furosemide 20 Mg Tablet, 20 MG PO DAILY Prescribed by: NALINI BECERRA on 09/10/17 1421 Hydrocodone Bit/Acetaminophen 1 Tab Tab, 1 EACH PO Q6H PRN for PAIN Prescribed by: NALINI BECERRA on 09/10/17 1425 Patient Home Medication List Home Medication List Reviewed: Yes Review of Systems Review of Systems Constitutional: dizziness (CHRONIC DIZZINESS--"ALL MY LIFE" ) Eyes: No Symptoms Reported Ears, Nose, Mouth, Throat: no symptoms reported Respiratory: no symptoms reported; No short of breath Cardiovascular: no symptoms reported; No chest pain, No palpitations, No syncope Gastrointestinal: see HPI, abdominal pain, constipation; No loss of appetite; nausea; No vomiting Genitourinary: see HPI; No dysuria; frequency, nocturia Musculoskeletal: see HPI, back pain, joint pain Skin: no symptoms reported Psychiatric/Neurological: Anxiety; Denies Headache, Denies Numbness, Denies Paresthesia, Denies Seizure, Denies Weakness Past Wlncepe-Cmnbji-Ietxis Hx Patient Social History Alcohol Use: Denies Use Recreational Drug Use: No Smoking Status: Never a Smoker 2nd Hand Smoke Exposure: No Recent Foreign Travel: No Contact w/Someone Who Travel: No Recent Hopitalizations: No Physical Abuse: No Sexual Abuse: No Mistreated: No Fear: No Seasonal Allergies Seasonal Allergies: No Past Medical History Surgeries: Yes (COLON CA SURGERY; LEFT HIP REPLACEMENT; HYST/BSO/APPY) Abdominal, Appendectomy, Bowel Surgery, Hysterectomy, Joint Replacement, Oophorectomy, Orthopedic Respiratory: No Cardiac: No Neurological: No 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, 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 Genitourinary: No Gastrointestinal: Yes (COLON CANCER) Chronic Constipation, Irritable Bowel Musculoskeletal: Yes Arthritis, Chronic Back Pain Endocrine: No HEENT: No Cancer: Yes (STATES SHE WAS IN HER 40'S WHEN SHE WAS DX WITH COLON CANCER) Colon Did You Recieve Any Treatments: Yes What Type of Treatment Did You: Surgical Intervention Psychosocial: Yes Anxiety Integumentary: No Blood Disorders: No Physical Exam Vital Signs Vital Signs - First Documented 11/11/17 06:35 Temp 97.8 Pulse 80 Resp 20 B/P (MAP) 160/139 (146) Pulse Ox 96 O2 Delivery Room Air Capillary Refill : Height, Weight, BMI Height: 5'5.00" Weight: 180lbs. 0oz. 81.903099jk; BMI Method:Stated General Appearance: WD/WN, no apparent distress, other (VERY ANXIOUS AND TREMULOUS) HEENT: PERRL/EOMI, normal ENT inspection Neck: non-tender, full range of motion, supple, normal inspection Cardiovascular: normal peripheral pulses, regular rate, rhythm, no edema, no JVD, no murmur Respiratory: chest non-tender, normal breath sounds, no respiratory distress, no accessory muscle use Gastrointestinal: normal bowel sounds, soft, no organomegaly, no pulsatile mass , tenderness (DIFFUSE LOWER ABDOMINAL TENDERNESS) Extremities: no pedal edema, normal capillary refill, other (TENDERNESS TO LEFT HIP. NO DEFORMITY. 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, no motor/sensory deficits, alert, oriented x 3, other (ANXIOUS) Skin: normal color, warm/dry Progress/Results/Core Measures Results/Orders Lab Results Laboratory Tests Test 11/11/17 06:50 11/11/17 07:47 Range/Units White Blood Count 7.4 4.3-11.0 10^3/uL Red Blood Count 4.70 4.35-5.85 10^6/uL Hemoglobin 14.3 11.5-16.0 G/DL Hematocrit 41 35-52 % Mean Corpuscular Volume 87 80-99 FL Mean Corpuscular Hemoglobin 30 25-34 PG Mean Corpuscular Hemoglobin Concent 35 32-36 G/DL Red Cell Distribution Width 13.3 10.0-14.5 % Platelet Count 238 130-400 10^3/uL Mean Platelet Volume 8.3 7.4-10.4 FL Neutrophils (%) (Auto) 60 42-75 % Lymphocytes (%) (Auto) 24 12-44 % Monocytes (%) (Auto) 10 0-12 % Eosinophils (%) (Auto) 6 0-10 % Basophils (%) (Auto) 1 0-10 % Neutrophils # (Auto) 4.4 1.8-7.8 X 10^3 Lymphocytes # (Auto) 1.8 1.0-4.0 X 10^3 Monocytes # (Auto) 0.7 0.0-1.0 X 10^3 Eosinophils # (Auto) 0.5 H 0.0-0.3 10^3/uL Basophils # (Auto) 0.0 0.0-0.1 10^3/uL Prothrombin Time 12.5 12.2-14.7 SEC INR Comment 0.9 0.8-1.4 Activated Partial Thromboplast Time 26 24-35 SEC Sodium Level 137 135-145 MMOL/L Potassium Level 3.9 3.6-5.0 MMOL/L Chloride Level 103 98-107 MMOL/L Carbon Dioxide Level 26 21-32 MMOL/L Anion Gap 8 5-14 MMOL/L Blood Urea Nitrogen 12 7-18 MG/DL Creatinine 0.77 0.60-1.30 MG/DL Estimat Glomerular Filtration Rate > 60 BUN/Creatinine Ratio 16 Glucose Level 106 H 70-105 MG/DL Calcium Level 9.1 8.5-10.1 MG/DL Corrected Calcium 9.2 8.5-10.1 MG/DL Magnesium Level 2.2 1.8-2.4 MG/DL Total Bilirubin 0.7 0.1-1.0 MG/DL Aspartate Amino Transf (AST/SGOT) 19 5-34 U/L Alanine Aminotransferase (ALT/SGPT) 12 0-55 U/L Alkaline Phosphatase 57 40-136 U/L Total Protein 7.2 6.4-8.2 GM/DL Albumin 3.9 3.2-4.5 GM/DL Amylase Level 42 25-125 U/L Lipase 17 8-78 U/L Urine Color YELLOW Urine Clarity CLEAR Urine pH 8 5-9 Urine Specific [place] 1.010 L 1.016-1.022 Urine Protein NEGATIVE NEGATIVE Urine Glucose (UA) NEGATIVE NEGATIVE Urine Ketones NEGATIVE NEGATIVE Urine Nitrite NEGATIVE NEGATIVE Urine Bilirubin NEGATIVE NEGATIVE Urine Urobilinogen NORMAL NORMAL MG/DL Urine Leukocyte Esterase NEGATIVE NEGATIVE Urine RBC (Auto) NEGATIVE NEGATIVE Urine RBC NONE /HPF Urine WBC NONE /HPF Urine Crystals NONE /LPF Urine Bacteria NEGATIVE /HPF Urine Casts NONE /LPF Urine Mucus NEGATIVE /LPF Urine Culture Indicated NO My Orders Orders - SVETA STUBBS DO Saline Lock/Iv-Start (11/11/17 06:44) Monitor-Rhythm Ecg Trace Only (11/11/17 06:44) Ct Abdomen/Pelvis Wo (11/11/17 06:44) Amylase (11/11/17 06:44) Cbc With Automated Diff (11/11/17 06:44) Comprehensive Metabolic Panel (11/11/17 06:44) Lipase (11/11/17 06:44) Magnesium (11/11/17 06:44) Protime With Inr (11/11/17 06:44) Partial Thromboplastin Time (11/11/17 06:44) Ua Culture If Indicated (11/11/17 06:44) Chest 1 View, Ap/Pa Only (11/11/17 06:44) Pelvis With Left Hip 2-3 Views (11/11/17 06:44) Saline Lock/Iv-Start (11/11/17 06:44) Lactated Ringers (Lr 1000 Ml Iv Solution (11/11/17 06:44) Ondansetron Injection (Zofran Injectio (11/11/17 06:45) Hyoscyamine Sl Tablet (Levsin Sl Tablet) (11/11/17 06:45) Lorazepam Injection (Ativan Injection) (11/11/17 06:45) Medications Given in ED Current Medications Medications Dose Ordered Sig/Randolph Route Start Time Stop Time Status Last Admin Dose Admin Hyoscyamine Sulfate 0.25 mg ONCE ONCE SL 11/11/17 06:45 11/11/17 06:46 DC 11/11/17 07:06 0.25 MG Lactated Ringer's 1,000 ml @ 0 mls/hr Q0M ONCE IV 11/11/17 06:44 11/11/17 06:46 DC 11/11/17 07:05 1,000 MLS/HR Lorazepam 0.5 mg ONCE ONCE IVP 11/11/17 06:45 11/11/17 06:47 DC 11/11/17 07:07 0.5 MG Ondansetron HCl 4 mg ONCE ONCE IVP 11/11/17 06:45 11/11/17 06:46 DC 11/11/17 07:06 4 MG Vital Signs/I&O 11/11/17 06:35 Temp 97.8 Pulse 80 Resp 20 B/P (MAP) 160/139 (146) Pulse Ox 96 O2 Delivery Room Air Progress Progress Note : Progress Note GIVEN ATIVAN AND PT MUCH CALMER NO C/O HIP PAIN AT ANY TIME DURING ER STAY NO C/O ABDOMINAL PAIN AT DISMISSAL PT ABLE TO STAND WITHOUT PAIN TO HIP/LEG AT DISMISSAL. Diagnostic Imaging Comments CXR--NO ACUTE PROCESS XRAYS LEFT HIP AND PELVIS--NO ACUTE PROCESS, TOTAL LEFT HIP ARTHROPLASTY--INTACT CT ABDOMEN/PELVIS--NO ACUTE PROCESS, CHRONIC CHANGES OF LUMBAR SPINE, S/P COLON RESECTION AND HYST/BSO/APPY, DIVERTICULAR DISEASE WITHOUT ACUTE DIVERTICULITIS ALL PER RADIOLOGIST REPORTS @ 0799 Reviewed: Reviewed by Me Departure Impression Primary Impression: Status post fall Additional Impressions: Contusion of left hip Chronic constipation CHRONIC LOWER ABDOMINAL PAIN Disposition: 01 HOME, SELF-CARE Condition: Stable Departure-Patient Inst. Referrals: QUYEN AYERS MD NO,LOCAL PHYSICIAN (PCP) Primary Care Physician Patient Instructions: Constipation, Adult (DC), Contusion (DC), Preventing Falls in the Older Adult Add. Discharge Instructions: USE YOUR WALKER AT ALL TIMES TYLENOL NEEDED FOR PAIN TAKE MIRALAX DAILY FOR CONSTIPATION KEEP YOUR APPOINTMENT WITH DR. AYERS TODAY All discharge instructions reviewed with patient and/or family. Voiced understanding. SVETA STUBBS DO Nov 11, 2017 07:15
[2017-11-11 07:22] LABS: ALANINE AMINOTRANSFERASE 12 U/L (0-55); ALBUMIN 3.9 GM/DL (3.2-4.5); ALKALINE PHOSPHATASE 57 U/L (40-136); AMYLASE 42 U/L (25-125); BILIRUBIN,TOTAL 0.7 MG/DL (0.1-1.0); BUN/CREATININE RATIO 16; CALCIUM 9.1 MG/DL (8.5-10.1); CARBON DIOXIDE 26 MMOL/L (21-32); CHLORIDE 103 MMOL/L (98-107); CREATININE SERUM 0.77 MG/DL (0.60-1.30); GFR ESTIMATED > 60; GLUCOSE 106 MG/DL (70-105); LIPASE 17 U/L (8-78); MAGNESIUM 2.2 MG/DL (1.8-2.4); POTASSIUM 3.9 MMOL/L (3.6-5.0); SODIUM 137 MMOL/L (135-145); TOTAL PROTEIN 7.2 GM/DL (6.4-8.2)
--- NOTE | 2017-11-11 07:31 | Diagnostic Imaging Report ---
PROCEDURE: CT abdomen and pelvis without contrast. TECHNIQUE: Multiple contiguous axial images were obtained through the abdomen and pelvis without the use of intravenous contrast. INDICATION: Fall. Left hip pain. COMPARISON: CT abdomen and pelvis without contrast 08/02/2016. Pelvis and left hip radiographs 09/10/2017. FINDINGS: Mild linear scarring or atelectasis in the lung bases. The liver, gallbladder, pancreas, spleen, adrenals, kidneys, collecting systems and bladder are negative on this noncontrast exam. The pelvis is obscured by streak artifact from the left JEANNE. Hysterectomy. Transverse colon anastomosis. No free intraperitoneal air or fluid. Moderate colonic diverticulosis without evidence for active diverticulitis. No evidence of bowel obstruction. No lymphadenopathy. Moderate atherosclerotic calcifications including a normal caliber abdominal aorta. Grade 1 retrolisthesis of L2 on L3. Moderate spondylotic changes in the lower lumbar spine. No acute osseous findings. IMPRESSION: 1. No acute CT findings in abdomen or pelvis on this noncontrast exam. 2. Left JEANNE is partially visualized. No acute osseous findings. Dictated by: Dictated on workstation # [id number]
--- NOTE | 2017-11-11 07:34 | Diagnostic Imaging Report ---
EXAM: CHEST 1 VIEW, AP/PA ONLY INDICATION: Fall. COMPARISON: None. FINDINGS: Normal heart size and central pulmonary vascularity. Calcified aorta. No focal pulmonary opacity, pleural effusion or pneumothorax. No acute osseous findings. IMPRESSION: No acute cardiopulmonary findings. Dictated by: Dictated on workstation # [id number]
--- NOTE | 2017-11-11 07:34 | Diagnostic Imaging Report ---
EXAM: PELVIS WITH LEFT HIP 2-3 VIEWS INDICATION: Fall. Left hip pain. COMPARISON: Left hip and pelvis radiographs 09/10/2017. FINDINGS: Left total hip arthroplasty. Components appear intact and well seated. No periprosthetic fracture. Soft tissue shadows are unremarkable. IMPRESSION: Left JEANNE. No acute radiographic findings. Dictated by: Dictated on workstation # [id number]
[2017-11-11 07:53] LABS: BILIRUBIN,URINE NEGATIVE (NEGATIVE); CLARITY,URINE CLEAR; COLOR,URINE YELLOW; GLUCOSE, URINE (UA) NEGATIVE (NEGATIVE); KETONES,URINE NEGATIVE (NEGATIVE); LEUKOCYTE ESTERASE ,URINE NEGATIVE (NEGATIVE); NITRITE,URINE NEGATIVE (NEGATIVE); PH,URINE 8 (5-9); PROTEIN,URINE NEGATIVE (NEGATIVE); UROBILINOGEN,URINE NORMAL (NORMAL)
[2017-11-11 07:59] LABS: BACTERIA,URINE NEGATIVE /HPF
[2017-11-11 08:14] VITALS: BP 117/80
== END 2017-11-11 08:14 | disposition home or self-care (01) ==
LOC: EDUNIT# 06:33 → ER 06:34
DX: S70.02XA Contusion of left hip, initial encounter (principal); K59.00 Constipation, unspecified; R10.30 Lower abdominal pain, unspecified; G89.29 Other chronic pain; F41.9 Anxiety disorder, unspecified; Z85.038 Personal history of other malignant neoplasm of large intestine; Z96.642 Presence of left artificial hip joint; Z90.89 Acquired absence of other organs; Z90.710 Acquired absence of both cervix and uterus; Z87.19 Personal history of other diseases of the digestive system; W18.30XA Fall on same level, unspecified, initial encounter; Y92.002 Bathroom of unspecified non-institutional (private) residence as the place of occurrence of the external cause
CPT/HCPCS: 36415; 71045; 74176; 80053; 81000; 82150; 83690; 83735; 85025; 85610; 85730; 93041

== ENCOUNTER 2018-01-13 08:34 | Inpatient (IN) | payer MEDICARE, OTHER ==
[~2018-01-13] VITALS: Ht 165.1 cm; Wt 80.3 kg
--- OUTSIDE RECORDS SUMMARY | 2018-01-13 08:38 | XMS REPORT | Continuity of Care Document ---
Author Author [facility] Organization [facility] Address Unknown Phone Unavailable Allergies Active Description Code Type Severity Reaction Onset Reported/Identified Relationship to Patient Clinical Status Yes NO KNOWN DRUG ALLERGIES UNKNOWN NO KNOWN DRUG ALLERG Yes No Known Drug Allergies [id number] Drug Allergy Unknown N/A 10/01/2013 Medications There is no data. Problems Date Dx Coded Attending Type Code Diagnosis Diagnosed By 10/01/2013 MARIYA BOLDEN MD Ot 278.00 OBESITY, NOS 10/01/2013 MARIYA BOLDEN MD Ot 721.3 LUMBOSACRAL SPONDYLOSIS 10/01/2013 MARIYA BOLDEN MD Ot 722.52 LUMB/LUMBOSAC DISC DEGEN 10/01/2013 MARIYA BOLDEN MD, Ot V58.69 OTH MED,LT,CURRENT USE 10/01/2013 MARIYA BOLDEN MD Ot V85.31 BODY MASS INDEX 31.0-31.9, ADULT 03/07/2014 MARIYA BOLDEN MD, Ot 721.3 LUMBOSACRAL SPONDYLOSIS 03/07/2014 MARIYA BOLDEN MD Ot 722.52 LUMB/LUMBOSAC DISC DEGEN 03/07/2014 MARIYA BOLDEN MD Ot V58.69 OTH MED,LT,CURRENT USE 03/20/2016 Ot 719.45 JOINT PAIN- PELVIS 03/20/2016 Ot 721.3 LUMBOSACRAL SPONDYLOSIS 03/20/2016 MARIYA BOLDEN MD Ot 722.52 LUMB/LUMBOSAC DISC DEGEN 03/20/2016 MARIYA BOLDEN MD Ot 737.30 IDIOPATHIC SCOLIOSIS 03/21/2016 ELENA FORD DO Ot M47.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, LUMBAR REGION 04/12/2016 ELENA FORD DO Ot M47.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, LUMBAR REGION 08/26/2016 GONZALEZ QUINTEROS APRN Ot K57.30 DVRTCLOS OF LG INT W/O PERFORATION OR AB 08/26/2016 ALDAIR, GONZALEZ M PATTERNMAKER HAND Ot K59.00 CONSTIPATION, UNSPECIFIED 08/26/2016 GONZALEZ QUINTEROS PATTERNMAKER HAND Ot R10.30 LOWER ABDOMINAL PAIN, UNSPECIFIED 08/26/2016 GONZALEZ QUINTEROS PATTERNMAKER HAND Ot Z90.49 ACQUIRED ABSENCE OF OTHER SPECIFIED PART 06/06/2017 JmAnn Chaparro 789.00 ABDOMINAL PAIN, UNSPECIFIED SITE 06/06/2017 Jm Ann W R10.30 LOWER ABDOMINAL PAIN, UNSPECIFIED 06/06/2017 Ann Oneal V12.59 OTHER PERSONAL HISTORY OF DISEASES OF CIRCULATORY SYSTEM 06/06/2017 Ann Oneal Z86.79 PERSONAL HISTORY OF OTHER DISEASES OF THE CIRCULATORY SYSTEM 06/06/2017 JmAnn W 789.00 ABDOMINAL PAIN, UNSPECIFIED SITE 06/06/2017 Ann Oneal R10.30 LOWER ABDOMINAL PAIN, UNSPECIFIED 06/06/2017 Ann Oneal W V12.59 OTHER PERSONAL HISTORY OF DISEASES OF CIRCULATORY SYSTEM 06/06/2017 Ann Oneal Z86.79 PERSONAL HISTORY OF OTHER DISEASES OF THE CIRCULATORY SYSTEM 06/06/2017 Ann Oneal W 244.9 UNSPECIFIED HYPOTHYROIDISM 06/06/2017 Jm Ann W 789.00 ABDOMINAL PAIN, UNSPECIFIED SITE 06/06/2017 JmCatalinaAnn W E03.9 HYPOTHYROIDISM, UNSPECIFIED 06/06/2017 Ann Oneal R10.30 LOWER ABDOMINAL PAIN, UNSPECIFIED 06/06/2017 Ann Oneal V12.59 OTHER PERSONAL HISTORY OF DISEASES OF CIRCULATORY SYSTEM 06/06/2017 Ann Oneal Z86.79 PERSONAL HISTORY OF OTHER DISEASES OF THE CIRCULATORY SYSTEM 07/17/2017 ZENAIDA JAIMES, MARKUS Warner Ot G89.29 OTHER CHRONIC PAIN 07/17/2017 MARKUS ESTEVEZ MD, Ot M19.90 UNSPECIFIED OSTEOARTHRITIS, UNSPECIFIED 07/17/2017 MARKUS ESTEVEZ MD, Ot M54.9 DORSALGIA, UNSPECIFIED 07/17/2017 MARKUS ESTEVEZ MD, Ot R53.1 WEAKNESS 07/17/2017 MARKUS ESTEVEZ MD, Ot Z79.52 REPAIR WELDER (CURRENT) USE OF SYSTEMIC STER 07/17/2017 MARKUS ESTEVEZ MD, Ot Z85.038 PERSONAL HISTORY OF MALIGNANT NEOPLASM O 07/17/2017 ZENAIDA JAIMES, MARKUS Warner Ot Z87.19 PERSONAL HISTORY OF OTHER DISEASES OF 07/21/2017 ZENAIDA JAIMES, MARKUS Warner Ot G89.29 OTHER CHRONIC PAIN 07/21/2017 ZENAIDA JAIMES, MARKUS Warner Ot M19.90 UNSPECIFIED OSTEOARTHRITIS, UNSPECIFIED 07/21/2017 ZENAIDA JAIMES, MARKUS Warner Ot M54.9 DORSALGIA, UNSPECIFIED 07/21/2017 ZENAIDA JAIMES, MARKUS Warner Ot R53.1 WEAKNESS 07/21/2017 ZENAIDA JAIMES, MARKUS Warner Ot Z79.52 CARE HOME (CURRENT) USE OF SYSTEMIC STER 07/21/2017 MARKUS ESTEVEZ MD, Ot Z85.038 PERSONAL HISTORY OF MALIGNANT NEOPLASM O 07/21/2017 ZENAIDA JAIMES, MARKUS Warner Ot Z87.19 PERSONAL HISTORY OF OTHER DISEASES OF 09/10/2017 Ot F03.90 UNSPECIFIED DEMENTIA WITHOUT BEHAVIORAL 09/10/2017 Ot R10.32 LEFT LOWER QUADRANT PAIN 09/10/2017 Ot Z85.038 PERSONAL HISTORY OF MALIGNANT NEOPLASM O 11/11/2017 SVETA STUBBS DO Ot F41.9 ANXIETY DISORDER, UNSPECIFIED 11/11/2017 SVETA STUBBS DO Ot G89.29 OTHER CHRONIC PAIN 11/11/2017 SVETA STUBBS DO Ot K59.00 CONSTIPATION, UNSPECIFIED 11/11/2017 SVETA STUBBS DO Ot M25.552 PAIN IN LEFT HIP 11/11/2017 SVETA STUBBS DO Ot R10.30 LOWER ABDOMINAL PAIN, UNSPECIFIED 11/11/2017 SVETA STUBBS DO Ot S70.02XA CONTUSION OF LEFT HIP, INITIAL ENCOUNTER 11/11/2017 SVETA STUBBS DO Ot W18.30XA FALL ON SAME LEVEL, UNSPECIFIED, INITIAL 11/11/2017 SVETA STUBBS DO Ot Y92.002 [facility] 11/11/2017 SVETA STUBBS DO Ot Z85.038 PERSONAL HISTORY OF MALIGNANT NEOPLASM O 11/11/2017 SVETA STUBBS DO Ot Z87.19 PERSONAL HISTORY OF OTHER DISEASES OF 11/11/2017 SVETA STUBBS DO Ot Z90.710 ACQUIRED ABSENCE OF BOTH CERVIX AND UTER 11/11/2017 ENOC DO SVETA Strickland Ot Z90.89 ACQUIRED ABSENCE OF OTHER ORGANS 11/11/2017 ENOC SVETA Strickland Ot Z96.642 PRESENCE OF LEFT ARTIFICIAL HIP JOINT 11/13/2017 ENOC SVETA Strickland Ot F41.9 ANXIETY DISORDER, UNSPECIFIED 11/13/2017 ENOC SVETA Strickland Ot G89.29 OTHER CHRONIC PAIN 11/13/2017 [place] SVETA Strickland Christopher K59.00 CONSTIPATION, UNSPECIFIED 11/13/2017 [facility] SVETA Strickland Ot M25.552 PAIN IN LEFT HIP 11/13/2017 ENOC SVETA Strickland Ot R10.30 LOWER ABDOMINAL PAIN, UNSPECIFIED 11/13/2017 ENOC SVETA Strickland Ot S70.02XA CONTUSION OF LEFT HIP, INITIAL ENCOUNTER 11/13/2017 ENOC SVETA Strickland Christopher W18.30XA FALL ON SAME LEVEL, UNSPECIFIED, INITIAL 11/13/2017 ENOC VILLARREAL SVETA Strickland Christopher Y92.002 [facility]M [facility] 11/13/2017 ENOC SVETA Strickland Christopher Z85.038 PERSONAL HISTORY OF MALIGNANT NEOPLASM O 11/13/2017 ENOC SVETA Strickland Christopher Z87.19 PERSONAL HISTORY OF OTHER DISEASES OF TH 11/13/2017 ENOC SVETA Strickland Christopher Z90.710 ACQUIRED ABSENCE OF BOTH CERVIX AND UTER 11/13/2017 ENOC SVETA Strickland Ot Z90.89 ACQUIRED ABSENCE OF OTHER ORGANS 11/13/2017 ENOC SVETA Strickland Christopher Z96.642 PRESENCE OF LEFT ARTIFICIAL HIP JOINT Procedures There is no data. Results Test Result Range BNP - 02/08/16 17:17 BNP 49.00 pg/ml 0.00-100.00 VIT B-12 - 03/13/16 10:55 Vitamin B12 346.00 pg/mL 213.00-816.00 Thyroid Stimulating Hormone - 03/13/16 10:55 TSH 1.39 mIU/mL 0.32-5.00 Comprehensive Metabolic Panel - 09/23/16 11:00 Albumin 3.6 g/dL 3.6-5.1 ALP 70 U/L 35-130 ALT 14 U/L 6-45 Anion Gap 12 6-14 AST 15 U/L 2-40 BUN 22 mg/dL 5-25 Calcium 9.5 mg/dL 8.3-10.4 Chloride 103 mmol/L 95-114 CO2 26 mEq/L 22-33 Creat 0.82 mg/dL 0.50-1.50 eGFR 66 mL/min/1.73m2 >59 Globulin 2.8 g/dL 2.3-3.5 Glucose 94 mg/dL 70-110 Osmo 286 280-295 Potassium 4.4 mmol/L 3.5-5.3 Sodium 137 mmol/L 134-148 TBil 0.4 mg/dL 0.2-1.2 TP 6.4 g/dL 6.0-8.3 Thyroid Stimulating Hormone - 06/06/17 08:49 TSH 1.63 mIU/mL 0.32-5.00 Complete blood count (CBC) with automated white blood cell (WBC) differential - 09/10/17 10:55 Blood leukocytes automated count (number/volume) 6.4 10*3/uL 4.3-11.0 Blood erythrocytes automated count (number/volume) 4.29 10*6/uL 4.35-5.85 Venous blood hemoglobin measurement (mass/volume) 13.3 g/dL 11.5-16.0 Blood hematocrit (volume fraction) 38 % 35-52 Automated erythrocyte mean corpuscular volume 89 [foz_us] 80-99 Automated erythrocyte mean corpuscular hemoglobin (mass per erythrocyte) 31 pg 25-34 Automated erythrocyte mean corpuscular hemoglobin concentration measurement ( mass/volume) 35 g/dL 32-36 Automated erythrocyte distribution width ratio 14.1 % 10.0-14.5 Automated blood platelet count (count/volume) 273 10*3/uL 130-400 Automated blood platelet mean volume measurement 8.7 [foz_us] 7.4-10.4 Automated blood neutrophils/100 leukocytes 59 % 42-75 Automated blood lymphocytes/100 leukocytes 28 % 12-44 Blood monocytes/100 leukocytes 11 % 0-12 Automated blood eosinophils/100 leukocytes 1 % 0-10 Automated blood basophils/100 leukocytes 1 % 0-10 Blood neutrophils automated count (number/volume) 3.8 10*3 1.8-7.8 Blood lymphocytes automated count (number/volume) 1.8 10*3 1.0-4.0 Blood monocytes automated count (number/volume) 0.7 10*3 0.0-1.0 Automated eosinophil count 0.1 10*3/uL 0.0-0.3 Automated blood basophil count (count/volume) 0.0 10*3/uL 0.0-0.1 Fibrin D-dimer FEU measurement in platelet poor plasma (mass/volume) - 10:55 Fibrin D-dimer FEU measurement in platelet poor plasma (mass/volume) 0.85 ug/mL 0.00-0.49 Comprehensive metabolic panel - 09/10/17 10:55 Serum or plasma sodium measurement (moles/volume) 138 mmol/L 135-145 Serum or plasma potassium measurement (moles/volume) 4.8 mmol/L 3.6-5.0 Serum or plasma chloride measurement (moles/volume) 100 mmol/L 98-107 Carbon dioxide 30 mmol/L 21-32 Serum or plasma anion gap determination (moles/volume) 8 mmol/L 5-14 Serum or plasma urea nitrogen measurement (mass/volume) 14 mg/dL 7-18 Serum or plasma creatinine measurement (mass/volume) 0.81 mg/dL 0.60-1.30 Serum or plasma urea nitrogen/creatinine mass ratio 17 NRG Serum or plasma creatinine measurement with calculation of estimated glomerular filtration rate > NRG Serum or plasma glucose measurement (mass/volume) 107 mg/dL 70-105 Serum or plasma calcium measurement (mass/volume) 9.8 mg/dL 8.5-10.1 Serum or plasma total bilirubin measurement (mass/volume) 0.6 mg/dL 0.1-1.0 Serum or plasma alkaline phosphatase measurement (enzymatic activity/volume) 58 U/L 40-136 Serum or plasma aspartate aminotransferase measurement (enzymatic activity/ volume) 20 U/L 5-34 Serum or plasma alanine aminotransferase measurement (enzymatic activity/volume ) 15 U/L 0-55 Serum or plasma protein measurement (mass/volume) 6.9 g/dL 6.4-8.2 Serum or plasma albumin measurement (mass/volume) 3.8 g/dL 3.2-4.5 Complete urinalysis with reflex to culture - 09/10/17 12:00 Urine color determination YELLOW NRG Urine clarity determination CLEAR NRG Urine pH measurement by test strip 7 5-9 Specific gravity of urine by test strip 1.010 1.016- 1.022 Urine protein assay by test strip, semi-quantitative NEGATIVE NEGATIVE Urine glucose detection by automated test strip NEGATIVE NEGATIVE Erythrocytes detection in urine sediment by light microscopy NEGATIVE NEGATIVE Urine ketones detection by automated test strip NEGATIVE NEGATIVE Urine nitrite detection by test strip NEGATIVE NEGATIVE Urine total bilirubin detection by test strip NEGATIVE NEGATIVE Urine urobilinogen measurement by automated test strip (mass/volume) NORMAL NORMAL Urine leukocyte esterase detection by dipstick NEGATIVE NEGATIVE Automated urine sediment erythrocyte count by microscopy (number/high power field) NONE NRG Automated urine sediment leukocyte count by microscopy (number/high power field ) NONE NRG Bacteria detection in urine sediment by light microscopy NEGATIVE NRG Squamous epithelial cells detection in urine sediment by light microscopy NONE NRG Crystals detection in urine sediment by light microscopy NONE NRG Casts detection in urine sediment by light microscopy NONE NRG Mucus detection in urine sediment by light microscopy NEGATIVE NRG Complete urinalysis with reflex to culture NO NRG Complete blood count (CBC) with automated white blood cell (WBC) differential - 11/11/17 06:50 Blood leukocytes automated count (number/volume) 7.4 10*3/uL 4.3-11.0 Blood erythrocytes automated count (number/volume) 4.70 10*6/uL 4.35-5.85 Venous blood hemoglobin measurement (mass/volume) 14.3 g/dL 11.5-16.0 Blood hematocrit (volume fraction) 41 % 35-52 Automated erythrocyte mean corpuscular volume 87 [foz_us] 80-99 Automated erythrocyte mean corpuscular hemoglobin (mass per erythrocyte) 30 pg 25-34 Automated erythrocyte mean corpuscular hemoglobin concentration measurement ( mass/volume) 35 g/dL 32-36 Automated erythrocyte distribution width ratio 13.3 % 10.0-14.5 Automated blood platelet count (count/volume) 238 10*3/uL 130-400 Automated blood platelet mean volume measurement 8.3 [foz_us] 7.4-10.4 Automated blood neutrophils/100 leukocytes 60 % 42-75 Automated blood lymphocytes/100 leukocytes 24 % 12-44 Blood monocytes/100 leukocytes 10 % 0-12 Automated blood eosinophils/100 leukocytes 6 % 0-10 Automated blood basophils/100 leukocytes 1 % 0-10 Blood neutrophils automated count (number/volume) 4.4 10*3 1.8-7.8 Blood lymphocytes automated count (number/volume) 1.8 10*3 1.0-4.0 Blood monocytes automated count (number/volume) 0.7 10*3 0.0-1.0 Automated eosinophil count 0.5 10*3/uL 0.0-0.3 Automated blood basophil count (count/volume) 0.0 10*3/uL 0.0-0.1 PT panel in platelet poor plasma by coagulation assay - 11/11/17 06:50 Prothrombin time (PT) in platelet poor plasma by coagulation assay 12.5 s 12.2-14.7 INR in platelet poor plasma or blood by coagulation assay 0.9 0.8-1.4 Activated partial thromboplastin time (aPTT) in platelet poor plasma bycoagulation assay - 11/11/17 06:50 Activated partial thromboplastin time (aPTT) in platelet poor plasma bycoagulation assay 26 s 24-35 Comprehensive metabolic panel - 11/11/17 06:50 Serum or plasma sodium measurement (moles/volume) 137 mmol/L 135-145 Serum or plasma potassium measurement (moles/volume) 3.9 mmol/L 3.6-5.0 Serum or plasma chloride measurement (moles/volume) 103 mmol/L 98-107 Carbon dioxide 26 mmol/L 21-32 Serum or plasma anion gap determination (moles/volume) 8 mmol/L 5-14 Serum or plasma urea nitrogen measurement (mass/volume) 12 mg/dL 7-18 Serum or plasma creatinine measurement (mass/volume) 0.77 mg/dL 0.60-1.30 Serum or plasma urea nitrogen/creatinine mass ratio 16 NRG Serum or plasma creatinine measurement with calculation of estimated glomerular filtration rate > NRG Serum or plasma glucose measurement (mass/volume) 106 mg/dL 70-105 Serum or plasma calcium measurement (mass/volume) 9.1 mg/dL 8.5-10.1 Serum or plasma total bilirubin measurement (mass/volume) 0.7 mg/dL 0.1-1.0 Serum or plasma alkaline phosphatase measurement (enzymatic activity/volume) 57 U/L 40-136 Serum or plasma aspartate aminotransferase measurement (enzymatic activity/ volume) 19 U/L 5-34 Serum or plasma alanine aminotransferase measurement (enzymatic activity/volume ) 12 U/L 0-55 Serum or plasma protein measurement (mass/volume) 7.2 g/dL 6.4-8.2 Serum or plasma albumin measurement (mass/volume) 3.9 g/dL 3.2-4.5 CALCIUM CORRECTED 9.2 mg/dL 8.5-10.1 Magnesium - 11/11/17 06:50 Magnesium 2.2 mg/dL 1.8-2.4 Serum or plasma amylase measurement (enzymatic activity/volume) - 11/11/17 06: 50 Serum or plasma amylase measurement (enzymatic activity/volume) 42 U /L 25-125 Lipase - 11/11/17 06:50 Lipase 17 U/L 8-78 Complete urinalysis with reflex to culture - 11/11/17 07:47 Urine color determination YELLOW NRG Urine clarity determination CLEAR NRG Urine pH measurement by test strip 8 5-9 Specific gravity of urine by test strip 1.010 1.016- 1.022 Urine protein assay by test strip, semi-quantitative NEGATIVE NEGATIVE Urine glucose detection by automated test strip NEGATIVE NEGATIVE Erythrocytes detection in urine sediment by light microscopy NEGATIVE NEGATIVE Urine ketones detection by automated test strip NEGATIVE NEGATIVE Urine nitrite detection by test strip NEGATIVE NEGATIVE Urine total bilirubin detection by test strip NEGATIVE NEGATIVE Urine urobilinogen measurement by automated test strip (mass/volume) NORMAL NORMAL Urine leukocyte esterase detection by dipstick NEGATIVE NEGATIVE Automated urine sediment erythrocyte count by microscopy (number/high power field) NONE NRG Automated urine sediment leukocyte count by microscopy (number/high power field ) NONE NRG Bacteria detection in urine sediment by light microscopy NEGATIVE NRG Crystals detection in urine sediment by light microscopy NONE NRG Casts detection in urine sediment by light microscopy NONE NRG Mucus detection in urine sediment by light microscopy NEGATIVE NRG Complete urinalysis with reflex to culture NO NRG Encounters ACCT No. Visit Date/Time Discharge Status Pt. Type Provider Facility Loc./Unit Complaint [id number] 12/30/2013 15:14:33 12/30/2013 23:59:59 CLS Outpatient Maurice Padilla [id number] 11/11/2017 06:34:00 11/11/2017 08:14:00 DIS Emergency SVETA STUBBS DO [facility] ER FALL [id number] 07/17/2017 16:49:00 07/17/2017 18:58:00 DIS Emergency MARKUS ESTEVEZ MD [facility] ER PAIN [id number] 08/02/2016 15:31:00 08/02/2016 23:59:59 CLS Outpatient GONZALEZ QUINTEROS APRN [facility] RAD LOWER ABDOMINAL PAIN [id number] 03/20/2016 09:14:00 03/20/2016 23:59:59 CLS Outpatient ELENA FORD DO [facility] RAD LUMBAR SPONDULOSIS [id number] 03/07/2014 14:43:00 03/07/2014 15:32:00 DIS Outpatient MARIYA BOLDEN MD [facility] CARD DEGENERATIVE DISC DISEASE LUMBAR [id number] 10/01/2013 10:26:00 10/01/2013 23:59:59 CLS Outpatient MARIYA BOLDEN MD [facility] CARD LUMBAR SPONDYLOSIS [id number] 09/29/2013 13:31:00 09/29/2013 23:59:59 CLS Outpatient MARIYA BOLDEN MD [facility] RAD LUMBAGO [id number] 09/10/2017 11:41:00 Document Registration [id number] 11/06/2011 15:44:00 Document Registration [id number] 06/06/2017 11:15:00 06/06/2017 23:59:00 DIS Outpatient Ann Oneal [id number] 09/23/2016 11:12:00 09/23/2016 23:59:00 DIS Outpatient EDGAR ESPINOZA [id number] 03/13/2016 12:14:00 03/13/2016 23:59:00 DIS Outpatient EDGAR ESPINOZA [id number] 02/08/2016 16:50:00 02/08/2016 23:59:00 DIS Outpatient EDGAR ESPINOZA [id number] 03/18/2014 23:04:08 ACT Document Registration
--- OUTSIDE RECORDS SUMMARY | 2018-01-13 08:38 | XMS REPORT | Clinical Summary ---
Author Author [facility] Organization [facility] Address Unknown Phone Unavailable Care Team Providers Care [employer] Name Role Phone PCP Unavailable Allergies Not on File Current Medications Not on file Active Problems Not on file Social History Tobacco Use Types Packs/Day Years Used Date Never Assessed Sex Assigned at Date Recorded Not on file Last Filed Vital Signs Not on file Plan of Treatment Not on file Results Not on filefrom Last 3 Months
[2018-01-13] MEDS ORDERED: NS IV 1000 ML 1,000 ML IV ONE (08:49)
[2018-01-13 08:58] LABS: BASOPHILS % (AUTO) 0 % (0-10); EOSINOPHILS % (AUTO) 0 % (0-10); HEMATOCRIT 40 % (35-52); HEMOGLOBIN 13.8 G/DL (11.5-16.0); LYMPHOCYTES # (AUTO) 1.4 X 10^3 (1.0-4.0); LYMPHOCYTES % (AUTO) 12 % (12-44); MEAN CORPUSCULAR HEMOGLOBIN 30 PG (25-34); MEAN CORPUSCULAR HGB CONC 35 G/DL (32-36); MEAN CORPUSCULAR VOLUME 86 FL (80-99); MEAN PLATELET VOLUME 8.6 FL (7.4-10.4); MONOCYTES # (AUTO) 1.3 X 10^3 (0.0-1.0); MONOCYTES % (AUTO) 11 % (0-12); NEUTROPHILS # (AUTO) 8.5 X 10^3 (1.8-7.8); NEUTROPHILS % (AUTO) 76 % (42-75); PLATELET COUNT 328 10^3/uL (130-400); RED BLOOD COUNT 4.65 10^6/uL (4.35-5.85); RED CELL DISTRIBUTION WIDTH 13.3 % (10.0-14.5); WHITE BLOOD COUNT 11.2 10^3/uL (4.3-11.0)
[2018-01-13 09:12] LABS: ALBUMIN 3.9 GM/DL (3.2-4.5); BILIRUBIN,TOTAL 0.9 MG/DL (0.1-1.0); CALCIUM 9.8 MG/DL (8.5-10.1); CREATININE SERUM 2.03 MG/DL (0.60-1.30); MAGNESIUM 2.2 MG/DL (1.8-2.4); POTASSIUM 3.6 MMOL/L (3.6-5.0)
[2018-01-13 09:27] LABS: BILIRUBIN,URINE NEGATIVE (NEGATIVE); CLARITY,URINE CLEAR; COLOR,URINE AMBER; GLUCOSE, URINE (UA) NEGATIVE (NEGATIVE); KETONES,URINE 1+ (NEGATIVE); LEUKOCYTE ESTERASE ,URINE 3+ (NEGATIVE); NITRITE,URINE NEGATIVE (NEGATIVE); PH,URINE 5 (5-9); PROTEIN,URINE 2+ (NEGATIVE); UROBILINOGEN,URINE NORMAL (NORMAL)
--- NOTE | 2018-01-13 09:30 | Diagnostic Imaging Report ---
INDICATION: Fall. COMPARISON: 11/11/2017. FINDINGS: Lungs are clear. No pleural effusion or pneumothorax. Heart is normal in size. Tortuous and atherosclerotic aorta is unchanged. No displaced rib fractures. Visualized portions of the clavicles are normal. IMPRESSION: No acute process by portable radiography. Dictated by: Dictated on workstation # [id number]
--- NOTE | 2018-01-13 09:32 | Diagnostic Imaging Report ---
INDICATION: Fall. COMPARISON: 04/01/2017. FINDINGS: Stable left total hip arthroplasty. No dislocation of either hip. No diastases of the SI joints or symphysis pubis. No displaced fracture in the visualized pelvis. Portions of sacrum are obscured by overlying bowel gas. 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 IMPRESSION: No fracture or traumatic diastases within the pelvis. Dictated by: Dictated on workstation # [id number]
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
[2018-01-13 09:38] LABS: AMORPHOUS SEDIMENT,UR FEW AMOR URATES /LPF; BACTERIA,URINE FEW /HPF; RBC,URINE 0-2 /HPF
[2018-01-13] MEDS ORDERED: cefTRIAXone FOR IV USE 1,000 MG in NS (IVPB) 50 ML IV ONE (10:15)
--- NOTE | 2018-01-13 10:24 | Diagnostic Imaging Report ---
PROCEDURE: CT head and CT cervical spine without contrast. TECHNIQUE: Multiple contiguous axial images were obtained through the brain and cervical spine without the use of intravenous contrast. Sagittal and coronal reformations through the cervical spine were then performed. INDICATION: Altered mental status, fall. COMPARISON: None available. FINDINGS: CT head: Global atrophy is present. No hyperdense hemorrhage or space-occupying mass. There is slight asymmetric CSF attenuation along the left frontal and parietal convexities which could represent a chronic subdural fluid collection. However, there is no associated mass effect on underlying cerebrum. No midline shift. No hydrocephalus. Periventricular white matter hypoattenuation is most compatible with chronic microvascular ischemic disease. No acute skull fracture. Paranasal sinuses and mastoid air cells are clear. CT cervical spine: No fracture or traumatic malalignment. Multilevel degenerative disc disease is greatest at C4-C5 and C5-6 with posterior disc osteophyte complex is causing no more than mild spinal stenosis. No high-grade spinal stenosis. Lung apices are clear. Incompletely imaged calcified thyroid nodule. No cervical lymphadenopathy. IMPRESSION: 1. No acute intracranial hemorrhage or skull fracture. 2. Potential chronic thin subdural CSF-like collection overlying the parietal and frontal convexities. This could represent asymmetric prominent extra-axial space due to aging brain, chronic subdural hygroma or less likely chronic subdural hematoma. This causes no mass effect/midline shift and is more of an incidental rather than a source for patient's altered mental status/confusion. 3. No fracture or traumatic malalignment in the cervical spine. Dictated by: Dictated on workstation # [id number]
--- OUTSIDE RECORDS SUMMARY | 2018-01-13 11:29 | XMS REPORT | Clinical Summary ---
Author Author [facility] Organization [facility] Address Unknown Phone Unavailable Care Team Providers Care Data Review Specialist Name Role Phone PCP Unavailable Allergies Not [...]
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
[2018-01-13 12:00] VITALS: BP 165/77
[2018-01-13] MEDS ORDERED: ARTIFICAL TEARS 0.4 ML UNIT DOSE (REFRESH PLUS) OU PRN (12:15)
[2018-01-13] MEDS ORDERED: CATHETER FLUSH 10 ML SYR IV PRN (12:15)
[2018-01-13] MEDS: NS IV 1000 ML 1,000 ML IV SCH ×2 (12:24→20:17)
[2018-01-13] MEDS ORDERED: PRED5DRO3 OD (13:44)
[2018-01-13] MEDS ORDERED: PEG15DRO5 OS (13:44)
[2018-01-13] MEDS ORDERED: TRAM50TA2 PO (13:44)
[2018-01-13] MEDS ORDERED: FLU QUADRIvalent (5+ YOA) 2018-2019 (AFLURIA) 0.5 ML IM ONE (13:45)
[2018-01-13] MEDS ORDERED: PRED5DRO17 OP (13:47)
[2018-01-13] MEDS ORDERED: PRED5DRO24 OD (13:47)
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
[2018-01-13 15:59] VITALS: BP 124/60
[2018-01-13] MEDS ORDERED: PEG OS PRN (16:30)
[2018-01-13] MEDS ORDERED: [UNRECOGNIZED DRUG - OTHER] OS PRN (16:30)
[2018-01-13] MEDS ORDERED: HYPROMELLOSE OS PRN (16:30)
[2018-01-13] MEDS ORDERED: GLYCERIN OS PRN (16:30)
--- NOTE | 2018-01-13 16:30 | History & Physicial ---
History of Present Illness History of Present Illness Reason for visit/HPI PT IS AN 87 Y/O FEMALE WHO IS KNOWN TO ME FROM CLINIC. SHE HAD BEEN MY PATIENT ABOUT 4 YEARS AGO - STOPPED SEEING ME IN CLINIC AND THEN RETURNED A PATIENT IN SEPTEMBER OF THIS YEAR. SHE HAD BEEN SEEN MULTIPLE TIMES AT THE EMERGENCY DEPARTMENT AND SHE ASKED ABOUT RETURNING A PATIENT TO THE PRACTICE. SHE HAD BEEN ADVISED THAT SHE SHOULD GO TO AN ASSISTED LIVING FACILITY SHE WAS NOT ABLE TO ADEQUATELY CARE FOR HERSELF, HOWEVER BOTH [facility] AND HER SON FELT LIKE SHE WAS FINE AT HOME. APPARENTLY SHE STARTED TO HAVE INTERMITTENT WORSENING OF HER CONFUSION IN THE PAST TWO WEEKS - HER DAUGHTER REPORTS THAT SHE NOTICED HER MOM BEING CONFUSED YESTERDAY WHEN SHE TALKED TO HER AND WAS GOING TO SEE ABOUT GETTING HER AN APPT , BUT TODAY SHE WAS UNABLE TO AMBULATE AND HER SON HAD HER BROUGHT TO THE HOSPITAL WHERE SHE WAS FOUND TO HAVE UTI AND DEHYDRATION. Date of Admission Jan 13, 2018 at 11:26 Date Seen by a Provider: Jan 13, 2018 Time Seen by a Provider: 16:00 I consulted on this patient on 01/13/18 16:25 Attending Physician Quyen William MD Admitting Physician Quyen William MD Consult Allergies and Home Medications Allergies Coded Allergies: No Known Drug Allergies (Unverified , 01/13/18) Home Medications Alprazolam 0.5 Mg Tablet, 0.5 MG PO TID, (Reported) Peg 400/Hypromellose/Glycerin 15 Ml Drops, 1 DROP OS TID PRN for DRY EYES, ( Reported) Prednisolone Acetate/Pf 5 Ml Drops.susp, 1 DROP OD DAILY, (Reported) Tramadol HCl 50 Mg Tablet, 50 MG PO BID PRN for PAIN-MODERATE, (Reported) Patient Home Medication List Home Medication List Reviewed: Yes Past Gu[place]wu-Vvnwde-[place] Hx Patient Social History Marrital Status: Living Status: LIVES BY HERSELF SON LIVES CLOSE BY Employed/Student: retired Alcohol Use: Denies Use Recreational Drug Use: No Smoking Status: Never a Smoker 2nd Hand Smoke Exposure: No Physical Abuse Screen: No Sexual Abuse: No Recent Foreign Travel: No Contact w/other who traveled: No Recent Hopitalizations: No Recent Infectious Disease Expo: No Seasonal Allergies Seasonal Allergies: No Surgeries Yes (COLON CA SURGERY; LEFT HIP REPLACEMENT; HYST/BSO/APPY) Abdominal, Appendectomy, Bowel Surgery, Hysterectomy, Joint Replacement, Oophorectomy, Orthopedic Respiratory No Cardiovascular No Neurological No Reproductive System : No Hx Reproductive Disorders: No 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 History: Hysterectomy, Menopausal Genitourinary Yes (UTI) Gastrointestinal Yes (COLON CANCER) Irritable Bowel Musculoskeletal Yes Arthritis, Chronic Back Pain Endocrine History of Endocrine Disorders: No HEENT History of HEENT Disorders: Yes Loss of Vision: Left Cancer Yes (STATES SHE WAS IN HER 40'S WHEN SHE WAS DX WITH COLON CANCER) Colon Did You Recieve Any Treatments: Yes Type of Treatment: Surgical Intervention Psychosocial History of Psychiatric Problem: Yes Behavioral Health Disorders: Anxiety Integumentary History of Skin or Integumenta: No Blood Transfusions History of Blood Disorders: No Reviewed Nursing Assessment Reviewed/Agree w Nursing PMH: Yes Family Medical History Significant Family History: Hypertension Family Hx: Patient reports no known family medical history. Review of Systems Constitutional: No chills, No fever; malaise, weakness EENTM: No throat pain Respiratory: cough Cardiovascular: No chest pain; edema Gastrointestinal: No abdominal pain, No loss of appetite, No nausea, No vomiting Genitourinary: no symptoms reported : No Musculoskeletal: No back pain; muscle weakness Skin: no symptoms reported Psychiatric/Neurological: Anxiety, Emotional Problems; Denies Headache, Denies Numbness; Weakness, Other (EXTREME CONFUSION) All Other Systems Reviewed Negative Unless Noted: Yes Physical Exam Vital Signs Vital Signs - First Documented 01/13/18 01/13/18 08:43 11:51 Temp 98.9 Pulse 85 Resp 18 B/P (MAP) 141/85 (103) Pulse Ox 96 O2 Delivery Room Air Capillary Refill : Less Than 3 Seconds Height, Weight, BMI Height: 5'5.00" Weight: 177lbs. 2.0oz. [id number]; 29.5 BMI Method:Estimated General Appearance: No Apparent Distress, WD/WN Eyes: Bilateral Eye Normal Inspection, Bilateral Eye PERRL, Bilateral Eye EOMI HEENT: PERRL/EOMI, Other (DISCHARGE LEFT EYE) Neck: Full Range of Motion, Non Tender, Supple Respiratory: Chest Non Tender, Lungs Clear, Normal Breath Sounds, No Accessory Muscle Use Cardiovascular: Regular Rate, Rhythm, Other ([place]EMA BILATERAL LOWER EXTREMITIES) Gastrointestinal: Normal Bowel Sounds, No Organomegaly, No Pulsatile Mass, Non Tender, Soft Rectal: Deferred Back: Normal Inspection Extremity: Normal Capillary Refill, Non Tender, No Calf Tenderness, Pedal Edema Neurologic/Psychiatric: Alert, Other (NOT ORIENTED TO PLACE/TIME, IS ORIENTED TO PERSON) Skin: Normal Color, Warm/Dry Lymphatic: No Adenopathy Assessment/Plan Assessment and Plan URINARY TRACT INFECTION DEHYDRATION ACUTE RENAL FAILURE ANXIETY CONFUSION MEDICATION NON-COMPLIANCE GENERALIZED WEAKNESS URINARY TRACT INFECTION - ON ROCEPHIN IV, WAIT ON CULTURE REPORT BEFORE CHANGING ANTIBIOTIC. DEHYDRATION - WITH ACUTE RENAL FAILURE - HYDRATION - GENTLE WITH NORMAL SALINE AND MONITOR I/O AND RENAL FUNCTION WITH LABS TOMORROW. ANXIETY - CHRONICALLY USES XANAX - RESTART HOME MEDICATION SHE HAS BEEN TAKING BENZODIAZEPINES FOR YEARS AND WILL NEED TO BE TAPERED AND NOT ABRUPTLY STOPPED SHE IS AT VERY HIGH RISK OF SEIZURES. I HAVE TRIED SSRIS - BUT SHE IS EXTREMELY RESISTANT TO ANY MEDICATION CHANGES AND REFUSED TO TAKE THE MEDICATION. CONFUSION - DUE TO DEHYDRATION AND UTI - MONITOR SYMPTOMS - SHE WAS VERY CONFUSED - THINKING THAT HER SON WAS SHOT AND THAT IT WAS SPRING AND SHE WAS STILL LIVING IN [place]. WEAKNESS - STARTED PHYSICAL THERAPY TODAY MEDICATION NONCOMPLIANCE - CHRONIC FOR PT - SHE REFUSES MEDICATIONS FREQUENTLY AND THEN WILL NOT COMPLETE REGIMEN I HAVE DISCUSSED THE CASE WITH HER DAUGHTER LAKEISHA AT THE FOLLOWING NUMBER - or [phone]. SHE HAS DPOA AND WOULD LIKE FOR HER MOM TO BE CONSIDERED FOR ADMISSION TO A HALFWAY ([facility]) ON DISCHARGE WITH PLANS TO THEN GO TO AN ASSISTED LIVING FACILITY IN [facility]. Admission Diagnosis URINARY TRACT INFECTION DEHYDRATION ACUTE RENAL FAILURE ANXIETY CONFUSION MEDICATION NON-COMPLIANCE GENERALIZED WEAKNESS Admission Status: Inpatient Order (span 2 midnights) Reason for Inpatient Admission: PT HAS A URINARY TRACT INFECTION, IS DEHYDRATED AND EXTREMELY CONFUSED. SHE WILL REQUIRE AT LEAST 48 -72 HOURS FOR STABLIZATION OF HER UTI, DEHYDRATION AND CONFUSION WITH NEED FOR PLACEMENT OUTSIDE OF HOME UPON DISCHARGE. Clinical Quality Measures DVT/VTE Risk/Contraindication: Risk Factor Score Per Nursin RFS Level Per Nursing on Admit: 4+=Very High QUYEN WILLIAM MD Jan 13, 2018 16:30
[2018-01-13] MEDS: ALPRAZolam 0.5 MG (XANAX) TAB PO SCH ×2 (16:46→20:17)
[2018-01-13] MEDS ORDERED: ARTIFICAL TEARS 0.4 ML UNIT DOSE (REFRESH PLUS) OS PRN (17:00)
[2018-01-13 19:15] VITALS: BP 139/66
[2018-01-13 23:01] VITALS: BP 133/62
[2018-01-14 04:00] VITALS: BP 132/64
[2018-01-14] MEDS: NS IV 1000 ML 1,000 ML IV SCH ×4 (05:40→22:29)
[2018-01-14 06:04] LABS: HEMOGLOBIN 11.2 G/DL (11.5-16.0); RED BLOOD COUNT 3.8 10^6/uL (4.35-5.85); WHITE BLOOD COUNT 7.1 10^3/uL (4.3-11.0)
[2018-01-14 06:05] LABS: MEAN PLATELET VOLUME 8.5 FL (7.4-10.4); RED CELL DISTRIBUTION WIDTH 13.2 % (10.0-14.5)
[2018-01-14 06:21] LABS: ALANINE AMINOTRANSFERASE 12 U/L (0-55); ALBUMIN 2.9 GM/DL (3.2-4.5); ALKALINE PHOSPHATASE 52 U/L (40-136); BILIRUBIN,TOTAL 0.7 MG/DL (0.1-1.0); BUN/CREATININE RATIO 36; CALCIUM 7.9 MG/DL (8.5-10.1); CARBON DIOXIDE 22 MMOL/L (21-32); CHLORIDE 111 MMOL/L (98-107); CREATININE SERUM 0.77 MG/DL (0.60-1.30); GFR ESTIMATED > 60; GLUCOSE 91 MG/DL (70-105); POTASSIUM 3.3 MMOL/L (3.6-5.0); SODIUM 140 MMOL/L (135-145)
[2018-01-14 07:42] VITALS: BP 128/61
--- NOTE | 2018-01-14 08:37 | Physical Therapy Daily Note ---
PT Daily Note-Current Subjective Pt reports her left eye is bothering her, nursing is aware. Requesting to use the restroom. States she doesn't have any pain right now, just soreness all over. Repeats questions several times after being answered. 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 Mental Status Patient Orientation: Confused, Eyes Open, Mumbles Attachments: IV Transfers Therapy Code Descriptions/Definitions Functional [place] Measure: 0=Not Assessed/NA 4=Minimal Assistance 1=Total Assistance 5=Supervision or Setup 2=Maximal Assistance 6=Modified [place] 3=Moderate Assistance 7=Complete [place] Therapy Quality Codes: 6 Independent with activity with or without an assistive device 5 Patient requires set up or clean up by helper. Patient completes activity by themselves 4 Supervision or touching assist (CGA). [place] provide cues , steadying assist 3 The helper provides less than half the effort to complete the activity 2 The helper provides more than half the effort to complete the activity 1 Dependent. The helper does all the effort to complete an activity 7 Patient refused to complete or attempt activity 9 The patient did not perform the activity before the current illness or injury 88 Not attempted due to Medical conditions or safety concerns Transfers (B, C, W/C) (FIM): 4 Scootin Rollin Supine to/from Sit: 4 Sit to/from Stand: 4 c/o dizziness with all transitions: bed, chair, toilet. Requiring assist with candice care after toileting. Weight Bearing Right Lower Extremity: Right Full Weight Bearing Left Lower Extremity: Left Full Weight Bearing Gait Training Gait (FIM): 4 Distance (FIM): 3=150 ft Distance: 230 Gait Level of Assist: 4 Gait Persons Needed: 1 Gait Assistive Device: FWW c/o dizziness, LBP and sore in thighs with increased distance, CGA provided, slow steady shuffling gait Treatments transfer and gait training Assessment Current Status: Fair Progress increased gait distance, dizziness with all activities PT Sole Leveler Machine Goals Sole Leveler Machine Goals Transfers (B,C,W/C) (FIM): 5 Gait (FIM): 5 Gait distance (FIM): 3=150 ft Distance: 150' Gait Level of Assist: 5 Gait Assistive Device: FWW PT Plan Problem List Problem List: Activity Tolerance, Functional Strength, Balance, Gait, Transfer Treatment/Plan Treatment Plan: Continue Plan of Care Treatment Plan: Bed Mobility, Education, Functional Activity Trini, Functional Strength, Gait, Safety, Therapeutic Exercise, Transfers Treatment Duration: Jan 20, 2018 Frequency: 6 times per week Estimated Hrs Per Day: .25 hour per day Patient and/or Family Agrees t: Yes Safety Risks/Education Patient Education: Transfer Techniques, Safety Issues Teaching Recipient: Patient Teaching Methods: Discussion Response to Teaching: Verbalize Understanding, Reinforcement Needed requires repeat instruction Time/GCodes Time In: 818 Time Out: 847 Total Billed Treatment Time: 29 Total Billed Treatment 1 visit GT 16 min FA 13 min MAHI PLUMMER PTA Jan 14, 2018 08:37
[2018-01-14] MEDS: ALPRAZolam 0.5 MG (XANAX) TAB PO SCH ×3 (08:48→20:11)
[2018-01-14] MEDS: prednisoLONE 1% OPTH (PRED FORTE) 5 ML BTL OD SCH (08:48)
--- NOTE | 2018-01-14 08:59 | Progress Note ---
Objective Exam Last Set of Vital Signs Vital Signs Date Time Temp Pulse Resp B/P (MAP) Pulse Ox O2 Delivery O2 Flow Rate FiO2 01/14/18 07:42 97.2 68 16 128/61 (83) 93 Room Air Capillary Refill : Less Than 3 Seconds I&O Intake and Output 01/14/18 00:00 Intake Total 1980 ml Output Total 400 ml Balance 1580 ml Intake Oral 980 ml IV Total 1000 ml Output Urine Total 400 ml # Voids 4 # Bowel Movements 1 Daily Weight Change No Results Lab Laboratory Tests 01/13/18 09:22: Urine Color AMBERH, Urine Clarity CLEAR, Urine pH 5, Urine Specific [place] 1.025H, Urine Protein 2+H, Urine Glucose (UA) NEGATIVE, Urine Ketones 1+H, Urine Nitrite NEGATIVE, Urine Bilirubin NEGATIVE, Urine Urobilinogen NORMAL, Urine Leukocyte Esterase 3+H, Urine RBC (Auto) 1+H, Urine RBC 0-2, Urine WBC 5- 10H, Urine Crystals PRESENTH, Urine Amorphous Sediment FEW OSMAN URATESH, Urine Bacteria FEWH, Urine Casts PRESENT, Urine Hyaline Casts 10-25H, Urine Mucus NEGATIVE, Urine Culture Indicated YES 01/14/18 05:43: White Blood Count 7.1, Red Blood Count 3.80L, Hemoglobin 11.2L, Hematocrit 34L, Mean Corpuscular Volume 88, Mean Corpuscular Hemoglobin 30, Mean Corpuscular Hemoglobin Concent 33, Red Cell Distribution Width 13.2, Platelet Count 265, Mean Platelet Volume 8.5, Sodium Level 140, Potassium Level 3.3L, Chloride Level 111H, Carbon Dioxide Level 22, Anion Gap 7, Blood Urea Nitrogen 28H, Creatinine 0.77, Estimat Glomerular Filtration Rate > 60, BUN/Creatinine Ratio 36, Glucose Level 91, Calcium Level 7.9L, Corrected Calcium 8.8, Total Bilirubin 0.7, Aspartate Amino Transf (AST/SGOT) 14, Alanine Aminotransferase ( ALT/SGPT) 12, Alkaline Phosphatase 52, Total Protein 5.0L, Albumin 2.9L Clinical Quality Measures Admission Status Admission Dx URINARY TRACT INFECTION DEHYDRATION ACUTE RENAL FAILURE ANXIETY CONFUSION MEDICATION NON-COMPLIANCE GENERALIZED WEAKNESS DVT/VTE Risk/Contraindication: Risk Factor Score Per Nursin RFS Level Per Nursing on Admit: 4+=Very High QUYEN AYERS MD Jan 14, 2018 08:59
[2018-01-14] MEDS: cefTRIAXone 1 GM/NS 50 ML IVPB IV SCH ×2 (10:29)
[2018-01-14 12:00] VITALS: BP 135/65
[2018-01-14 15:02] VITALS: BP 123/58
[2018-01-14 19:45] VITALS: BP 119/58
[2018-01-14 23:44] VITALS: BP 147/68
[2018-01-15 03:45] VITALS: BP 149/69
[2018-01-15] MEDS: NS IV 1000 ML 1,000 ML IV SCH ×3 (06:26→23:26)
[2018-01-15 07:55] VITALS: BP 144/67
[2018-01-15] MEDS: ALPRAZolam 0.5 MG (XANAX) TAB PO SCH ×3 (08:39→20:31)
[2018-01-15] MEDS: prednisoLONE 1% OPTH (PRED FORTE) 5 ML BTL OD SCH (08:40)
--- NOTE | 2018-01-15 09:39 | Progress Note ---
Objective Exam Last Set of Vital Signs Vital Signs Date Time Temp Pulse Resp B/P (MAP) Pulse Ox O2 Delivery O2 Flow Rate FiO2 01/15/18 07:55 98.4 67 18 144/67 (92) 95 Room Air Capillary Refill : Less Than 3 Seconds I&O Intake and Output 01/15/18 00:00 Intake Total 2700 ml Balance 2700 ml Intake Oral 1700 ml IV Total 1000 ml # Voids 7 # Bowel Movements 3 Results Lab Microbiology 01/13/18 Urine Culture - Final, Complete See Report Clinical Quality Measures Admission Status Admission Dx URINARY TRACT INFECTION DEHYDRATION ACUTE RENAL FAILURE ANXIETY CONFUSION MEDICATION NON-COMPLIANCE GENERALIZED WEAKNESS DVT/VTE Risk/Contraindication: Risk Factor Score Per Nursin RFS Level Per Nursing on Admit: 4+=Very High QUYEN AYERS MD Jan 15, 2018 09:39
[2018-01-15] MEDS: cefTRIAXone 1 GM/NS 50 ML IVPB IV SCH ×2 (09:53)
--- NOTE | 2018-01-15 11:49 | Physical Therapy Daily Note ---
PT Daily Note-Current Subjective Pt up in chair talking to family on phone when PT arrived. Pt agreed to get up and walk for PT. Pain Numeric Pain Scale: 0-No Pain Location: No Pain Reported Mental Status Patient Orientation: Confused, Mumbles Attachments: IV Transfers Therapy Code Descriptions/Definitions Functional [place] Measure: 0=Not Assessed/NA 4=Minimal Assistance 1=Total Assistance 5=Supervision or Setup 2=Maximal Assistance 6=Modified [place] 3=Moderate Assistance 7=Complete [place] Therapy Quality Codes: 6 Independent with activity with or without an assistive device 5 Patient requires set up or clean up by helper. Patient completes activity by themselves 4 Supervision or touching assist (CGA). [place] provide cues , steadying assist 3 The helper provides less than half the effort to complete the activity 2 The helper provides more than half the effort to complete the activity 1 Dependent. The helper does all the effort to complete an activity 7 Patient refused to complete or attempt activity 9 The patient did not perform the activity before the current illness or injury 88 Not attempted due to Medical conditions or safety concerns Transfers (B, C, W/C) (FIM): 5 Scootin Sit to/from Stand: 5 Weight Bearing Right Lower Extremity: Right Full Weight Bearing Left Lower Extremity: Left Full Weight Bearing Gait Training Gait (FIM): 4 Distance (FIM): 3=150 ft Distance: 200' Gait Level of Assist: 4 Gait Persons Needed: 1 Gait Assistive Device: FWW Assessment Pt able to ambulate for 200' with a FWW requiring CGA. Pt did not show any signs of fatigue and returned to recliner in her room. Pt will continue therapy to improve overall ambulation for daily demands. Pt left with belongings, call light and seat alarm on when PT exited room. PT Nurse Practitioner Adult Goals Nurse Practitioner Adult Goals Transfers (B,C,W/C) (FIM): 5 Gait (FIM): 5 Gait distance (FIM): 3=150 ft Distance: 150' Gait Level of Assist: 5 Gait Assistive Device: FWW PT Plan Problem List Problem List: Activity Tolerance, Functional Strength, Safety, Balance, Gait, Transfer, Bed Mobility, ROM Treatment/Plan Treatment Plan: Continue Plan of Care Treatment Plan: Bed Mobility, Education, Functional Activity Trini, Functional Strength, Gait, Safety, Therapeutic Exercise, Transfers Treatment Duration: Jan 20, 2018 Frequency: 6 times per week Estimated Hrs Per Day: .25 hour per day Patient and/or Family Agrees t: Yes Time/GCodes Time In: 1112 Time Out: 1126 Total Billed Treatment Time: 14 Total Billed Treatment 1 Visit GT - 14' DASHAWN CHARLTON PT Jan 15, 2018 11:49
[2018-01-15 12:00] VITALS: BP 142/64
[2018-01-15 15:15] VITALS: BP 152/67
[2018-01-15 19:10] VITALS: BP 150/68
[2018-01-16 00:05] VITALS: BP 152/72
[2018-01-16 04:08] VITALS: BP 147/67
[2018-01-16] MEDS: NS IV 1000 ML 1,000 ML IV SCH (07:27)
[2018-01-16 08:00] VITALS: BP 162/75
[2018-01-16] MEDS: ALPRAZolam 0.5 MG (XANAX) TAB PO SCH (10:14)
[2018-01-16] MEDS: cefTRIAXone 1 GM/NS 50 ML IVPB IV SCH ×2 (10:15)
[2018-01-16] MEDS: prednisoLONE 1% OPTH (PRED FORTE) 5 ML BTL OD SCH (10:15)
[2018-01-16] MEDS ORDERED: LACT1CAP87 PO (10:56)
[2018-01-16] MEDS ORDERED: CEPH-507 PO (10:56)
--- NOTE | 2018-01-16 10:57 | Discharge Inst-Skilled Nursing ---
Discharge Inst-Skilled NF Patient Instructions Patient Problems: falling episodes generalized weakness dementia anxiety urinary tract infection Goal: increased strength to transition to assisted living facility - [facility] to be near her sister and brother Consult/Follow Up/Orders Follow Up Appt.: 1 wk [facility] Skilled NF Admit to: [facility] Certification (SNF) I certify that SNF services are required to be given on an inpatient basis because of the above named patient's need for correction care on a continuing basis for the conditions(s) for which he/she was receiving inpatient hospital services prior to his/her transfer to the SNF. Detention Facility Order: Nursing Services, Apprentice Photographer-Evaluate & Treat, Physical Therapy-Evaluate & Treat Discharge Diet: Regular Diet Daily Activity as Tolerated: Yes New & Resume Previous Orders Quyen William Jan 16, 2018 10:56 Pneu Vac Indicated: Yes QUYEN WILLIAM MD Jan 16, 2018 10:57
== END 2018-01-16 12:52 | DRG 683 ==
LOC: EDUNIT# 08:34 → ER 08:34 → 4TH 11:26
PROVIDERS: ADMIT Family Medicine; ATTEND Family Medicine
DX: N17.9 Acute kidney failure, unspecified (principal); N39.0 Urinary tract infection, site not specified; E86.0 Dehydration; F41.9 Anxiety disorder, unspecified; R53.1 Weakness; R29.6 Repeated falls; Z66 Do not resuscitate; K58.1 Irritable bowel syndrome with constipation; M19.91 Primary osteoarthritis, unspecified site; M54.9 Dorsalgia, unspecified; Z91.14 Patient's other noncompliance with medication regimen; Z85.038 Personal history of other malignant neoplasm of large intestine; Z90.49 Acquired absence of other specified parts of digestive tract; Z96.642 Presence of left artificial hip joint
CPT/HCPCS: 36415; 70450; 71045; 72125; 72170; 80053; 81000; 83735; 85025; 85027; 87088; 93041; 96361; 96365

== ENCOUNTER 2020-11-23 09:25 | Emergency (ER) | payer MEDICARE, OTHER ==
[~2020-11-23] VITALS: Ht 170 cm; Wt 80.0 kg
[~2020-11-23 09:25] MED LIST changes: +CEPH-507 PO; +LACT1CAP87 PO; +PEG15DRO5 OS; +PRED5DRO17 OP; +PRED5DRO24 OD; +PRED5DRO3 OD; +TRM50T PO
--- NOTE | 2020-11-23 09:44 | ED Back Pain ---
General Chief Complaint: Back Problems Stated Complaint: BACK PAIN Source of Information: Patient, EMS, [facility] Records, Old Records History of Present Illness Date Seen by Provider: Nov 23, 2020 Time Seen by Provider: 09:25 Initial Comments 89-year-old female presenting from [facility] in [facility] by EMS. She was brought to the ED for complaints of back pain. She has chronic back pain and takes fentanyl patch as well as hydrocodone as needed. She denies any acute tra ashley or fall. The alf did not report any trauma or injury. Patient appears to be in no distress and somewhat somnolent. She has her eyes open and will answer questions but without stimulation she closes her eyes and drifts off to sleep. She denies any pain or burning with urination. When asked how severe the pain was she responded that it felt like her usual pain. No reports of fever, chills, nausea, vomiting, diarrhea. Pt does have dementia and is wearing an adult brief. She denies losing control of bowels or bladder, but again she has dementia and wearing an adult brief. Location: Lumbar Spine Pain/Injury Location: Back (lower back) Method of Injury: Other (pt denies any injury or trauma and NH did not report any trauma or injury) Modifying Factors: Worse With Movement; Improves With Pain Medication Associated Symptoms: No muscle spasms, No fever, No sensory/motor loss; lower back pain (acute on chronic back pain) Allergies and Home Medications Allergies Coded Allergies: No Known Drug Allergies (Unverified , 01/13/18) Patient Home Medication List Home Medication List Reviewed: Yes Alprazolam (Xanax) 0.5 Mg Tablet, 0.5 MG PO TID, (Reported) Entered as Reported by: ZAHIDA CAMACHO on 09/10/17 1113 Cephalexin (Keflex) 500 Mg Capsule, 500 MG PO TID Prescribed by: QUYEN AYERS on 01/16/18 1056 Cephalexin (Cephalexin) 500 Mg Tablet, 500 MG PO TID Prescribed by: ARNAUD SNIDER on 11/23/20 1024 Lactobacillus Acidophilus (Acidophilus Lactobacilli) 1 Each Capsule, 1 EACH PO TID Prescribed by: QUYEN AYERS on 01/16/18 1056 Peg 400/Hypromellose/Glycerin (Artificial Tears Drops) 15 Ml Drops, 1 DROP OS TID PRN for DRY EYES, (Reported) Entered as Reported by: YUNI CARRERA on 01/13/18 1344 Prednisolone Acetate/Pf (Prednisolone Acet 1% Eye Drop) 5 Ml Drops.susp, 1 DROP OD DAILY, (Reported) Entered as Reported by: YUNI CARRERA on 01/13/18 1347 Tramadol HCl (Tramadol HCl) 50 Mg Tablet, 50 MG PO BID PRN for PAIN-MODERATE, (Reported) Entered as Reported by: YUNI CARRERA on 01/13/18 1344 Review of Systems Constitutional: No chills, No fever EENTM: no symptoms reported Respiratory: no symptoms reported Cardiovascular: no symptoms reported Gastrointestinal: no symptoms reported Genitourinary: no symptoms reported Musculoskeletal: see HPI Skin: No rash Past Emzasjf-Vafnza-Pnzjgs Hx Patient Social History Tobacco Use?: No Use of E-Cig and/or Vaping dev: No Substance use?: No Alcohol Use?: No Pt feels they are or have been: No Seasonal Allergies Seasonal Allergies: No Past Medical History Surgeries: Yes (COLON CA SURGERY; LEFT HIP REPLACEMENT; HYST/BSO/APPY) Abdominal, Appendectomy, Bowel Surgery, Hysterectomy, Joint Replacement, Oophorectomy, Orthopedic Respiratory: No Cardiac: No Neurological: No Reproductive Disorders: No 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 Hypertension Physical Exam Vital Signs Vital Signs - First Documented 11/23/20 09:25 Temp 36.3 Pulse 76 Resp 20 B/P (MAP) 62/ Pulse Ox 95 O2 Delivery Room Air Capillary Refill : Height, Weight, BMI Height: 5'5.00" Weight: 177lbs. 2.0oz. 80.457859gu; 29.5 BMI Method:Estimated General Appearance: No Apparent Distress HEENT: No Moist Mucous Membranes (slightly dry mucous membranes) Cardiovascular: Regular Rate, Rhythm, Normal Peripheral Pulses Respiratory: Chest Non Tender, Lungs Clear, Normal Breath Sounds Gastrointestinal: No Pulsatile Mass, Non Tender, Soft Back: Decreased Range of Motion Extremity: Normal Capillary Refill, No Pedal Edema Neurologic/Psychiatric: Alert; No Oriented x3 (oriented to self) Skin: Normal Color, Warm/Dry Progress/Results/Core Measures Results/Orders Lab Results Laboratory Tests Test 11/23/20 09:50 Range/Units Urine Color YELLOW Urine Clarity CLOUDY Urine pH 6.0 5-9 Urine Specific [place] 1.020 1.016-1.022 Urine Protein NEGATIVE NEGATIVE Urine Glucose (UA) NEGATIVE NEGATIVE Urine Ketones NEGATIVE NEGATIVE Urine Nitrite POSITIVE H NEGATIVE Urine Bilirubin NEGATIVE NEGATIVE Urine Urobilinogen 0.2 < = 1.0 MG/DL Urine Leukocyte Esterase 3+ H NEGATIVE Urine RBC (Auto) TRACE-I H NEGATIVE Urine RBC NONE /HPF Urine WBC >100 H /HPF Urine Squamous Epithelial Cells RARE /HPF Urine Crystals NONE /LPF Urine Bacteria LARGE H /HPF Urine Casts NONE /LPF Urine Mucus NEGATIVE /LPF Urine Culture Indicated YES My Orders Orders - ARNAUD SNIDER MD Straight Cath For Spec.-Adult (11/23/20 09:36) Ua Culture If Indicated (11/23/20 09:36) Ct Lumbar Spine Wo (11/23/20 09:36) Urine Culture (11/23/20 09:50) Ceftriaxone (Rocephin) (11/23/20 10:10) Lidocaine 1% Inj 20 Ml (Xylocaine 1% Inj (11/23/20 10:15) Medications Given in ED Current Medications Medications Dose Ordered Sig/Randolph Route Start Time Stop Time Status Last Admin Dose Admin Lidocaine HCl 2.1 ml ONCE ONCE INJ 11/23/20 10:15 11/23/20 10:16 DC 11/23/20 10:24 2.1 ML Vital Signs/I&O 11/23/20 11/23/20 09:25 10:31 Temp 36.3 36.3 Pulse 76 76 Resp 20 20 B/P (MAP) 62/ 62/ Pulse Ox 95 95 O2 Delivery Room Air Room Air Progress Progress Note #1: Progress Note With patient not appearing to be in any distress and stating her pain is same level as usual it is unclear what the [facility] was wanting with the patient. Will obtain UA to check for infection and CT scan of Lumbar spine to evaluate for acute process. Progress Note #2: Progress Note UA shows signs of infection with Nit, LE, >100 WBC and bacteria. Will treat with Rocephin 1 gm IM here and Cephalexin for NH and discharge back to CT once CT scan report is back. Progress Note #3: Progress Note CT scan shows degenerative changes that have advance since prior imaging. She has no definite acute fracture seen on imaging. She had some motion artifact on the scan. Will proceed with treating UTI and discharge back to [facility]. When going to review information with patient and update her she was noted to have slid to the floor and had a BM in her brief. She was not noted to have any acute injury. Diagnostic Imaging Diagonstic Imaging: CT Plain Films/CT/US/NM/MRI: other (lumbar spine) Comments [facility] [place] [place] NAME: LOPEZ COLE [facility] REC#: [id number] PT STATUS: REG ER : 1930 PHYSICIAN: ARNAUD SNIDER MD ADMIT DATE: 11/23/20/ER FS Draft Date of Exam:11/23/20 CT LUMBAR SPINE WO CLINICAL INDICATION: Patient with acute and chronic low back pain. EXAM: Axial CT scan of the lumbar spine without IV contrast. Sagittal and coronal reformatted images are created. Auto Exposure Controls were utilized during the CT exam to meet ALARA standards for radiation dose reduction. COMPARISON: MRI of the lumbar spine without contrast dated 03/20/2016. FINDINGS: There is significant motion artifact which obscures the L3 through L5 levels limiting evaluation for fractures. There is no definite evidence of acute fracture seen on this exam, but subtle fractures involving the L3 through L5 levels cannot be completely excluded. L1-L2: There is interval development of subtle grade 1 retrolisthesis of L1 on L2. There is a diffuse disc bulge which has progressed. There is no significant central canal or neural foramen narrowing. L2-L3: There is stable grade 1 retrolisthesis of L2 on L3. There is a diffuse disc bulge which appears to have slightly progressed. There is moderate bilateral facet arthropathy. There is at least mild central canal narrowing. There is moderate bilateral neural foramen narrowing which has progressed. L3-L4: Motion artifact limits evaluation of this region. There is moderate bilateral facet arthropathy. There is no gross bony central canal or neural foramen narrowing. L4-L5: Motion artifact limits evaluation of this region. There is progression of grade 1 anterolisthesis of C7 on T1, which is now 7 mm compared to the prior study previously seen at roughly 3-4 mm. There is severe loss of disc space height, which has progressed. There is bilateral facet arthropathy/hypertrophy. There is at least mild bony central canal narrowing. There is some degree of bilateral neural foramen narrowing which is partially obscured. L5-S1: There is interval progression of a diffuse disc bulge and severe bilateral facet arthropathy/hypertrophy. There is no significant central canal narrowing. There is [id number] bilateral neural foramen narrowing which has progressed. IMPRESSION: 1: There is significant motion artifact limiting evaluation of the L3 through L5 levels. Subtle fractures in this region cannot be completely excluded. If there is concern for a fracture, then repeat CT scan may help better evaluate. 2: There is no definite acute fracture seen. 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 Dictated on workstation # [id number] Dict: 11/23/20 1003 Trans: 11/23/20 1016 [id number] Interpreted by: YASMANY PARHAM MD Electronically signed by: Reviewed: Reviewed by Me Departure Impression Primary Impression: Acute exacerbation of chronic low back pain Additional Impression: Acute cystitis without hematuria Disposition: 01 HOME, SELF-CARE Condition: Stable Departure-Patient Inst. Decision time for Depature: 10:28 Referrals: QUYEN AYERS MD (PCP) Primary Care Physician Patient Instructions: Low Back Pain ED, Urinary Tract Infection, Adult ED Add. Discharge Instructions: Continue on regular medicines and check with PCP about what modalities or treatments could be used to help manage her chronic low back pain. Take full course of antibiotics to treat for Urine infection, which may be contributing to her complaint of low back pain. All discharge instructions reviewed with patient and/or family. Voiced understanding. Scripts Cephalexin (Cephalexin) 500 Mg Tablet 500 MG PO TID for UTI for 7 Days, #21 TAB 0 Refills Prov: ARNAUD SNIDER MD 11/23/20 ARNAUD SNIDER MD Nov 23, 2020 09:44
[2020-11-23 09:53] LABS: BILIRUBIN,URINE NEGATIVE (NEGATIVE); CLARITY,URINE CLOUDY; GLUCOSE, URINE (UA) NEGATIVE (NEGATIVE); KETONES,URINE NEGATIVE (NEGATIVE); LEUKOCYTE ESTERASE ,URINE 3+ (NEGATIVE); NITRITE,URINE POSITIVE (NEGATIVE); PROTEIN,URINE NEGATIVE (NEGATIVE)
[2020-11-23 10:04] LABS: BACTERIA,URINE LARGE /HPF; COLOR,URINE YELLOW; SQUAMOUS EPITHELIAL CELL,UR RARE /HPF; WBC,URINE >100 /HPF
[2020-11-23] MEDS ORDERED: cefTRIAXone 1,000 MG VIAL IM STA (10:10)
[2020-11-23] MEDS ORDERED: LIDOCAINE 1% INJ 20 ML 20 ML VIAL INJ ONE (10:15)
--- NOTE | 2020-11-23 10:17 | Diagnostic Imaging Report ---
CLINICAL INDICATION: Patient with acute and chronic low back pain. EXAM: Axial CT scan of the lumbar spine without IV contrast. Sagittal and coronal reformatted images are created. Auto Exposure Controls were utilized during the CT exam to meet ALARA standards for radiation dose reduction. COMPARISON: MRI of the lumbar spine without contrast dated 03/20/2016. FINDINGS: There is significant motion artifact which obscures the L3 through L5 levels limiting evaluation for fractures. There is no definite evidence of acute fracture seen on this exam, but subtle fractures involving the L3 through L5 levels cannot be completely excluded. L1-L2: There is interval development of subtle grade 1 retrolisthesis of L1 on L2. There is a diffuse disc bulge which has progressed. There is no significant central canal or neural foramen narrowing. L2-L3: There is stable grade 1 retrolisthesis of L2 on L3. There is a diffuse disc bulge which appears to have slightly progressed. There is moderate bilateral facet arthropathy. There is at least mild central canal narrowing. There is moderate bilateral neural foramen narrowing which has progressed. L3-L4: Motion artifact limits evaluation of this region. There is moderate bilateral facet arthropathy. There is no gross bony central canal or neural foramen narrowing. L4-L5: Motion artifact limits evaluation of this region. There is progression of grade 1 anterolisthesis of C7 on T1, which is now 7 mm compared to the prior study previously seen at roughly 3-4 mm. There is severe loss of disc space height, which has progressed. There is bilateral facet arthropathy/hypertrophy. There is at least mild bony central canal narrowing. There is some degree of bilateral neural foramen narrowing which is partially obscured. L5-S1: There is interval progression of a diffuse disc bulge and severe bilateral facet arthropathy/hypertrophy. There is no significant central canal narrowing. There is [id number] bilateral neural foramen narrowing which has progressed. IMPRESSION: 1: There is significant motion artifact limiting evaluation of the L3 through L5 levels. Subtle fractures in this region cannot be completely excluded. If there is concern for a fracture, then repeat CT scan may help better evaluate. 2: There is no definite acute fracture seen. 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 Dictated by: Dictated on workstation # [id number]
[2020-11-23] MEDS ORDERED: CEPH500T PO (10:24)
[2020-11-23 10:31] VITALS: BP_SYST 62
== END 2020-11-23 11:05 | disposition home or self-care (01) ==
LOC: EDUNIT# 09:31 → ER FS 09:32
DX: G89.29 Other chronic pain (principal); M54.50 Low back pain, unspecified; N30.00 Acute cystitis without hematuria; F41.9 Anxiety disorder, unspecified; Z79.899 Other long term (current) drug therapy; Z79.52 Long term (current) use of systemic steroids
CPT/HCPCS: 51701; 72131; 81000; 87077; 87088; 87186; 96372